=== PATIENT | female | born 1965 | race Caucasian/White ===

== ENCOUNTER → 2020-01-11 13:15 | Outpatient (CLI) | payer OTHER, SELFPAY ==
--- NOTE | ~2020-01-11 | DEXA_ITS ---
Bone Density Report Name: Gian Guardado Age: 54 Sex: Female Ethnicity: White Date of : 1965 Indication: postmenopausal; screening for osteoporosis; cancer; Referring Provider: ARNALDO WILSON Study: Bone densitometry was performed. Exam Date: January 11, 2020 Accession number: [id number] Bone Density: Region BMD T-score Z-score Classification AP Spine (L1, L2, L4) 0.983 -0.5 0.5 Normal Femoral Neck (Left) 1.095 2.2 3.2 Normal Total Hip (Left) 1.092 1.2 1.8 Normal Femoral Neck (Right) 1.112 2.4 3.3 Normal Total Hip (Right) 1.041 0.8 1.4 Normal Total Hip Mean 1.067 1.0 1.6 Normal World Health Organization criteria for BMD impression classify patients as: Normal (T-score at or above -1.0), Osteopenia (T-score between -1.0 and -2.5), or Osteoporosis (T-score at or below -2.5). 10-year Fracture Risk: FRAX not reported because: All T-scores for Spine Total, Hip Total, Femoral Neck at or above -1.0 Previous Exams: Region Exam Age BMD T-score BMD Change BMD Change Date g/cm2 vs Baseline vs Previous AP Spine(L1, L2, L4) 01/11/2020 54 0.983 -0.5 -0.119* -0.119* 01/08/2018 52 1.101 0.6 Total Hip(Left) 01/11/2020 54 1.092 1.2 -0.048* -0.048* 01/08/2018 52 1.139 1.6 Total Hip(Right) 01/11/2020 54 1.041 0.8 -0.042* -0.042* 01/08/2018 52 1.083 1.2 *Denotes significance at 95% confidence level, LSC for AP Spine = 0.022 g/cm2, LSC for Total Hip = 0.027 g/cm2 Clinical Information Provided by Patient: Has used the following medications: Vitamin D, Anastrazol Has the following medical conditions: Cancer Patient maximum height was 67 Menopause Age: 52 Drinks caffeinated beverages Onset of menses at age 14 Number of children 2 Impression: The patient has normal bone mass. The BMD for the AP Spine(L1, L2, L4) decreased, changing by -0.119 since the last DXA exam. The BMD for the Total Hip(Left) decreased, changing by -0.048 since the last DXA exam. The BMD for the Total Hip(Right) decreased, changing by -0.042 since the last DXA exam. Discussion: BONE DENSITY IS ABOVE THE MINIMUM DESIRABLE LEVEL AT ALL SKELETAL SITES TESTED. This patient?s bone mineral density is above the minimum desirable level (T-score -1.0 or better) at all sites measured. The patient should follow a healthful lifestyle (good nutrition with adequate calcium and vitamin D, and appropriate weight-bearing exercise).
== END ==
PROVIDERS: PCP Family Medicine
DX: C50.812 Malignant neoplasm of overlapping sites of left female breast (principal); Z17.0 Estrogen receptor positive status [ER+]; Z85.3 Personal history of malignant neoplasm of breast; Z78.0 Asymptomatic menopausal state
CPT/HCPCS: 77080

== ENCOUNTER → 2022-03-29 11:05 | Outpatient (CLI) | payer OTHER, SELFPAY ==
--- NOTE | ~2022-03-29 | DEXA_ITS ---
Bone Density Report Name: MIMI DE LA TORRE Age: 56 Sex: Female Ethnicity: White Date of : 1965 Indication: postmenopausal; screening for osteoporosis; cancer; Referring Provider: Gay Camilo Study: Bone densitometry was performed. Exam Date: March 29, 2022 Accession number: [id number] Bone Density: Region BMD T-score Z-score Classification AP Spine (L1, L2, L4) 1.033 0.0 1.1 Normal Femoral Neck (Left) 1.166 2.9 3.9 Normal Total Hip (Left) 1.118 1.4 2.2 Normal Femoral Neck (Right) 1.088 2.2 3.2 Normal Total Hip (Right) 0.994 0.4 1.1 Normal Total Hip Mean 1.056 0.9 1.7 Normal World Health Organization criteria for BMD impression classify patients as: Normal (T-score at or above -1.0), Osteopenia (T-score between -1.0 and -2.5), or Osteoporosis (T-score at or below -2.5). 10-year Fracture Risk: FRAX not reported because: All T-scores for Spine Total, Hip Total, Femoral Neck at or above -1.0 Previous Exams: Region Exam Age BMD T-score BMD Change BMD Change Date g/cm2 vs Baseline vs Previous AP Spine(L1, L2, L4) 03/29/2022 56 1.033 0.0 -0.068* 0.050* 01/11/2020 54 0.983 -0.5 -0.119* -0.119* 01/08/2018 52 1.101 0.6 Total Hip(Left) 03/29/2022 56 1.118 1.4 -0.021 0.027 01/11/2020 54 1.092 1.2 -0.048* -0.048* 01/08/2018 52 1.139 1.6 Total Hip(Right) 03/29/2022 56 0.994 0.4 -0.089* -0.047* 01/11/2020 54 1.041 0.8 -0.042* -0.042* 01/08/2018 52 1.083 1.2 *Denotes significance at 95% confidence level, LSC for AP Spine = 0.022 g/cm2, LSC for Total Hip = 0.027 g/cm2 Clinical Information Provided by Patient: Has used the following medications: Vitamin D, Anastrozole, MTV Has the following medical conditions: Cancer, Left breast ca partial mastectomy in 2018 with radiation Patient maximum height was 67.0 Menopause Age: 52 No regular weight bearing exercise Drinks caffeinated beverages Onset of menses at age 14 Number of children 2 Impression: The patient has normal bone mass. The BMD for the Total Hip(Right) decreased, changing by -0.047 since the last DXA exam. Discussion: BONE DENSITY IS ABOVE THE MINIMUM DESIRABLE LEVEL AT ALL SKELETAL SITES TESTED. This patient?s bone mineral density is above the minimum desirable level (T-score -1.0 or better) at all sites measured. The patient should fol
== END ==
PROVIDERS: PCP Family Medicine
DX: Z78.0 Asymptomatic menopausal state (principal); Z79.811 Long term (current) use of aromatase inhibitors
CPT/HCPCS: 77080

== ENCOUNTER 2023-07-22 07:10 | Outpatient (CLI) | payer OTHER, SELFPAY ==
--- NOTE | ~2023-07-22 | XR_ITS ---
Lumbosacral Spine: AP and lateral views Clinical History: Pain Findings: The normal lordotic curve is maintained. No fracture identified. Questionable L5 pars inter articularis defects. Probable grade 1 anterolisthesis of L5 over S1. The intervertebral disc spaces a re preserved. There is moderate to advanced facet arthropathy at the lower lumbar spine. The sacroili ac joints are normally outlined. Impression: Probable grade 1 anterolisthesis of L5 over S1. L5 pars interarticularis defects may be present. Moderate to advanced facet arthropathy at the lower lumbar spine. Reviewed, dictated and finalized at [facility]. Impression: Probable grade 1 anterolisthesis of L5 over S1. L5 pars interarticularis defect s may be present. Moderate to advanced facet arthropathy at the lower lumbar spine.
--- NOTE | ~2023-07-22 | XR_ITS ---
AP view of the pelvis and AP and lateral views of the bilateral hips Clinical history: Pain Findings: No acute fracture or dislocation is seen. Osseous alignment is anatomic. There is mild dege nerative change of both hip joints. Soft tissues are unremarkable. Impression: Mild degenerative change of both hip joints. Reviewed, dictated and finalized at location . Impression: Mild degenerative change of both hip joints.
== END 2023-07-22 07:11 ==
LOC: MICIMG 07:12
PROVIDERS: PCP Physician Assistant; Visit Provider Physician Assistant
DX: M16.0 Bilateral primary osteoarthritis of hip (principal); M47.816 Spondylosis without myelopathy or radiculopathy, lumbar region
CPT/HCPCS: 72100; 73521

== ENCOUNTER 2024-07-09 07:19 | Outpatient (CLI) | payer OTHER, SELFPAY ==
--- NOTE | ~2024-07-09 | XR_ITS ---
XR knee LT 3V 07/09/2024 07:52 Indication: Ankylosing spondylitis Procedure: 3 views left knee Comparison: No prior studies for comparison. Findings: Mild tricompartment osteoarthritis of the left knee. No fracture, subluxation or dislocatio n. No significant joint effusion. No foreign bodies. Impression: 1: Mild tricompartment osteoarthritis of the left knee. Reviewed, dictated and finalized at location A. Impression: 1: Mild tricompartment osteoarthritis of the left knee.
--- NOTE | ~2024-07-09 | XR_ITS ---
XR knee RT 3V 07/09/2024 07:52 Indication: Right knee pain Procedure: 3 views right knee Comparison: No prior studies for comparison. Findings: There is mild tricompartment osteoarthritis. No fracture or traumatic malalignment. No sign ificant joint effusion. No foreign bodies. Impression: 1: Mild tricompartment osteoarthritis of the right knee. Reviewed, dictated and finalized at location A. Impression: 1: Mild tricompartment osteoarthritis of the right knee.
--- NOTE | ~2024-07-09 | XR_ITS ---
XR hip BI 2V w AP pelvis 07/09/2024 07:52 Indication: Ankylosing spondylitis Procedure: AP pelvis 2 views each hip Comparison: 07/22/2023 Findings: There has been progression of severe bilateral osteoarthritis of the hips. Pelvic rings are intact. Mild osteitis pubis. No acute fracture or traumatic malalignment. Impression: 1: Interval progression of severe bilateral osteoarthritis of the hips. Reviewed, dictated and finalized at location A. Impression: 1: Interval progression of severe bilateral osteoarthritis of the hips.
== END 2024-07-09 07:20 | disposition home or self-care (01) ==
PROVIDERS: PCP Physician Assistant; Visit Provider Nurse Practitioner
DX: M45.7 Ankylosing spondylitis of lumbosacral region (principal); Z79.1 Long term (current) use of non-steroidal anti-inflammatories (NSAID); R25.2 Cramp and spasm; G47.01 Insomnia due to medical condition; M17.0 Bilateral primary osteoarthritis of knee; M16.0 Bilateral primary osteoarthritis of hip
CPT/HCPCS: 73521; 73562

== ENCOUNTER 2024-08-25 11:44 | Outpatient (CLI) | payer OTHER, SELFPAY ==
--- NOTE | ~2024-08-25 | DEXA_ITS ---
Bone Density Report Name: MIMI DE LA TORRE Age: 59 Sex: Female Ethnicity: White Date of : 1965 Indication: postmenopausal; screening for osteoporosis; height loss; cancer; Referring Provider: JANNA AUSTIN Study: Bone densitometry was performed. Exam Date: August 25, 2024 Accession number: [id number] Bone Density: Region BMD T-score Z-score Classification AP Spine(L1-L4) 1.079 0.3 1.6 Normal Femoral Neck (Left) 1.156 2.8 4.0 Normal Total Hip (Left) 1.072 1.1 1.9 Normal Femoral Neck (Right) 1.176 3.0 4.1 Normal Total Hip (Right) 1.021 0.6 1.5 Normal Total Hip Mean 1.047 0.9 1.7 Normal World Health Organization criteria for BMD impression classify patients as: Normal (T-score at or above -1.0), Osteopenia (T-score between -1.0 and -2.5), or Osteoporosis (T-score at or below -2.5). 10-year Fracture Risk: FRAX not reported because: All T-scores for Spine Total, Hip Total, Femoral Neck at or above -1.0 Previous Exams: -- Region Exam Age BMD T-score BMD Change BMD Change Date g/cm2 vs Baseline vs Previous -- AP Spine (L1-L4) 08/25/2024 59 1.079 0.3 -4.6%* -4.6%* 01/08/2018 52 1.130 0.8 Total Hip(Left) 08/25/2024 59 1.072 1.1 -5.9%* -4.1%* 03/29/2022 56 1.118 1.4 -1.8% 2.4% 01/11/2020 54 1.092 1.2 -4.2%* -4.2%* 01/08/2018 52 1.139 1.6 Total Hip(Right) 08/25/2024 59 1.021 0.6 -5.7%* 2.8%* 03/29/2022 56 0.994 0.4 -8.3%* -4.5%* 01/11/2020 54 1.041 0.8 -3.9%* -3.9%* 01/08/2018 52 1.083 1.2 -- *Denotes significance at 95% confidence level, LSC for AP Spine = 0.022 g/cm2, LSC for Total Hip = 0.027 g/cm2 Clinical Information Provided by Patient: Has used the following medications: Vitamin D Has the following medical conditions: Cancer, Ankylosing Spondylitis, Breast CA 2015 Patient maximum height was 67 Menopause Age: 52 Drinks caffeinated beverages Onset of menses at age 15 Number of children 2 Impression: The patient has normal bone mass. The BMD for the AP Spine (L1-L4) decreased, changing by -4.6% since the last DXA exam. The BMD for the Total Hip(Left) decreased, changing by -4.1% since the last DXA exam. Discussion: BONE DENSITY IS ABOVE THE MINIMUM DESIRABLE LEVEL AT ALL SKELETAL SITES TESTED. This patient’s bone mineral density is above the minimum desirable level (T-score -1.0 or better) at all sites measured. The patient should follow a healthful lifestyle (good nutrition with adequate calcium and vitamin D, and appropriate weight-bearing exercise). Follow-Up: Consider repeating this study in 3 to 4 years to reassess this patient's status, or sooner if there is some new clinical indication. Reported by: CARSON on 09/01/2024 8:52:00 AM. Reviewed, dictated and finalized at location A.
== END 2024-08-25 11:45 | disposition home or self-care (01) ==
PROVIDERS: PCP Family Medicine; Visit Provider Obstetrics & Gynecology Gynecology
DX: Z78.0 Asymptomatic menopausal state (principal)
CPT/HCPCS: 77080

== ENCOUNTER 2024-09-29 08:35 | Outpatient (CLI) | payer OTHER, SELFPAY ==
--- NOTE | ~2024-09-29 | MM_ITS ---
EXAMINATION: MM screening wali BI w yesenia HISTORY: Screening TECHNIQUE: Craniocaudal and mediolateral oblique 3-D tomosynthesis images were obtained and synthetic 2-D images were generated. CAD analysis was submitted and interpreted. COMPARISON: Comparison to multiple prior studies sequentially, with oldest reviewed study dated 11/26. BREAST PARENCHYMAL COMPOSITION: Dense: The breasts are heterogeneously dense, which may obscure small masses FINDINGS: There is no evidence of suspicious mass, calcification, or architectural distortion to sugg est malignancy in either breast. There has been no suspicious interval change. IMPRESSION: 1. No mammographic evidence of malignancy. 2. Recommend routine screening mammography in one year. BI-RADS Category 1: Negative Reviewed, dictated and finalized at location A.
--- OUTSIDE RECORDS SUMMARY | 2024-09-29 08:56 | XMS_ITS | Clinical Summary ---
Author Organization [facility] Address [address] [place] [address] Care Team Providers Care Drum Filler Name Role Phone Angy Palomino MD Primary Care Provider + Source Comments [facility],non-owned Affiliates and Associated Physician Practices is amultiple site organization consisting of ambulatory clinics and hospital sitesin [place], [place] and [place]. This disclosure is being madepursuant to the Care Everywhere program and may not contain all information available regarding this patient. Last updated 18.[facility] Allergies No known active allergies Medications * Be aware that medications may not be up to date on this document. Alwaysverify current medications with the patient. citalopram (CELEXA) 20 MG tablet 20 mg once daily 07/20/2017 Active lisinopril-hydr oCHLOROthiazide (PRINZIDE; ZESTORETIC) 10-12.5 MG tablet Take 1 tablet by mouth once daily 07/20/2017 Active vitamin D, ergocalciferol, (DRISDOL) 58143 UNITS capsule Take 50,000 Units by mouth every 7 days 07/20/2017 Active metFORMIN (GLUCOPHAGE) 1000 MG tablet Take 1,000 mg by mouth 2 times daily with morning and evening meal Active nystatin (MYCOSTATIN) 787920 UNIT/GM ointmentIndicat ions:Lichen sclerosus,Vulva r itching Apply to affected area 2 times daily 30 g 2 10/13/2018 Active anastrozole (ARIMIDEX) 1 MG tablet Take 1 mg by mouth once daily Active triamcinolone acetonide (KENALOG) 0.1 % ointmentIndicat ions:Lichen sclerosus Apply to affected area Two times a week 30 g 3 09/12/2020 Active Active Problems Problem Noted Date Diagnosed Date Vaginal discharge 08/24/2018 Lichen sclerosus 08/06/2017 Family History Medical History Relation Name Comments Cancer - Breast Cousin Cancer - Lung Father Cancer - Breast Maternal Aunt great CVA Maternal Grandfather Cancer - Ovarian Maternal Grandmother Cancer - Breast Mother DCIS Hypertension Mother ADD/ADHD Paternal Grandfather Cancer - Breast Paternal Grandmother Relation Name Status Comments Cousin Alive Father Maternal Aunt great Maternal Grandfather Maternal Grandmother Mother Alive Paternal Grandfather Paternal Grandmother Social History Tobacco Use Types Packs/Day Years Used Date Smoking Tobacco: Never Smokeless Tobacco: Never Alcohol Use Standard Drinks/Week Comments No 0 (1 standard drink = 0.6 oz pur e alcohol) Comments No Sex and Gender Information Value Date Recorded Sex Assigned at Not on file 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 Gender Identity Not on file Sexual Orientation Not on file Last Filed Vital Signs Vital Sign Reading Time Taken Comments Blood Pressure 132/74 09/12/2020 2:49 PM CDT Pulse - - Temperature - - Respiratory Rate - - Oxygen Saturation - - Inhaled Oxygen Concentration - - Weight 104.3 kg (230 lb) 09/12/2020 2:49 PM CDT Height 170.2 cm (5' 7) 09/12/2020 2:49 PM CDT Body Mass Index 36.02 09/12/2020 2:49 PM CDT Plan of Treatment Health Maintenance Due Date Last Done Comments COLOGUARD (AGES 45-75) - COL ON CA SCREENING 1965 COLON MONITORING 1966 COLONOSCOPY - COLON CA SCREENING 1966 CT COLONOGRAPHY - COLON CA SCREENING 1965 Colorectal Cancer Screening 1966 FIT - COLON CA SCREENING 1966 FLEX SIG - COLON CA SCREENING 1966 LIPID TESTING 1966 HIV SCREENING 1981 HEPATITIS C SCREENING 06/20/1984 DTAP/TDAP/TD VACCINES (1 - Tdap) 1985 HEPATITIS B VACCINE (1 of 3 - 19+ 3-dose series) 1985 PNEUMOCOCCAL VACCINE 50+ (1 of 1 - PCV) 2016 ZOSTER VACCINE (1 of 2) 2016 SCREENING FOR DIABETES 09/12/2020 MAMMOGRAM 09/30/2020 09/30/2018, 09/30/2018 COVID-19 VACCINE (1 - 2023-2 5 season) 2023 DEPRESSION SCREENING 04/14/2024 INFLUENZA VACCINE (Season Ended) 2024 HIB VACCINE Aged Out No longer eligi ble based on patient's age to complete this topic HPV VACCINE Aged Out No longer eligi ble based on patient's age to complete this topic MENINGOCOCCAL (Group B) VACCINE SHARED DECISION-MAKING Aged Out No longer eligible based on patient's age to complete this topic MENINGOCOCCAL GROUPS A/C/Y/W VACCINE Aged Out No longer eligible b ased on patient's age to complete this topic [place] [address] [place] [address] Care Teams Drum Filler Relationship Specialty Start Date End Date Angy Palomino MD [address] [place] [phone] PCP - General 07/24/17
--- OUTSIDE RECORDS SUMMARY | 2024-09-29 08:56 | XMS_ITS | Referral Summary ---
Author Organization [facility] Address [address] [place] [id number] Care Team Providers Care Flying I Instructor Name Role Phone Angy Palomino MD Primary Care Provider Kaleb Parnell MD Unavailable Allergies No known active allergies Medications aspirin 81 mg tablet daily. Active lisinopril-hydr oCHLOROthiazide (PRINZIDE,ZESTO RETIC) 10-12.5 mg per tabletIndicatio ns:hypertension 8 Active VITAMIN D2 50,000 unit capsule 8 Active metFORMIN (GLUCOPHAGE) 1,000 mg tablet every 12 hours. Active cyanocobalamin (Vitamin B-12) 500 mcg tabletIndicatio ns:Prevention of Vitamin B12 Deficiency daily. Active triamcinolone (KENALOG) 0.1 % ointment Apply topically as needed 8 Active clonazePAM (KlonoPIN) 0.5 mg tablet as needed Active grsjs-6-vjl-epa -dpa-fish oil 1,050-1,200 mg capsule 1 tablet daily Activ e nystatin ointment Apply topically as needed 9 Active citalopram (CeleXA) 20 mg tablet Take 1 tablet (20 mg total) by mouth nightly 11 9 Active rosuvastatin (CRESTOR) 5 mg tablet TAKE 1 TABLET BY MOUTH ONCE DAILY IN THE EVENING WITH EVENING MEAL 2 Active cyclobenzaprine (FLEXERIL) 10 mg tablet [address] (VOLTAREN) 75 mg EC tablet Take 1 tablet (75 mg total) by mouth 2 (two) times a day 4 Active folic acid (FOLVITE) 1 mg tablet 4 Active gabapentin (NEURONTIN) 300 mg capsule 4 Active methotrexate 2.5 mg tablet TAKE 5 TABLETS BY MOUTH IN THE MORNING AND 5 TABLETS IN THE EVENING ONCE A WEEK. [address] (PROTONIX) 40 mg EC tablet 4 Active predniSONE (DELTASONE) 5 mg tablet 4 Active traMADoL (ULTRAM) 50 mg tablet 4 Active Active Problems Problem Noted Date Diagnosed Date History of breast cancer 10/22/2017 Carcinoma of overlapping sit es of left breast in female, estrogen receptor positive 05/26/2017 Immunizations Immunization Administration Dates Next Due Flucelvax Influenza Quad 02/19/2016 Influenza, Quadrivalent, Spl it, Preservative Free, Intramuscular 02/07/2020 Pfizer SARS-CoV-2 Monovalent Vaccination (12+ Yrs) PURPLE 08/01/2020,07/10/2020 Social History Tobacco Use Types Packs/Day Years Used Date Smoking Tobacco: Never Smokeless Tobacco: Never Alcohol Use Standard Drinks/Week Comments No 0 (1 standard drink = 0.6 oz pur e alcohol) Comments No Sex and Gender Information Value Date Recorded Sex Assigned at Not on file Legal Sex Female 12:12 PM CDT Gender Identity Not on file Sexual Orientation Not on file Last Filed Vital Signs Vital Sign Reading Time Taken Comments Blood Pressure 125/85 12/26/2023 8:13 AM CDT Pulse 81 12/26/2023 8:13 AM CDT Temperature 36.7 C (98 F) 12/26/2023 8:13 AM CDT Respiratory Rate 18 12/26/2023 8:13 AM CDT Oxygen Saturation 97% 12/26/2023 8:13 AM CDT Inhaled Oxygen Concentration - - Weight 111.9 kg (246 lb 9.6 oz) 12/26/2023 8:09 AM CDT Height 172.7 cm (5' 8) 11/19/2017 12:2 4 PM CDT Body Mass Index 37.5 11/19/2017 12:24 PM CDT Plan of Treatment Not on file Procedures Procedure Name Priority Date/Time Associated Diagnosis Comments SCREENING MAMMOGRAM BILATERAL W TAY Schedule Routine, Read Routine (OP Routine) 09/29/2023 7:21 AM CDT Carcinoma of overlapping sites of left breast in female, estrogen receptor positive (HCC) from Last 3 Months or Most Recently Relevant to Health Maintenance Results * Screening Mammogram Bilateral W Tay (09/29/2023 7:21 AM CDT) Anatomical Region Laterality Modality Breast Bilateral Mammography 09/29/2023 10:3 3 AM CDT Impressions 09/29/2023 10:33 AM CDT No evidence of malignancy in either breast. FINAL ASSESSMENT: BI-RADS Category 1: Negative. RECOMMENDATION: Recommend return for annual screening mammogram in 12 months. Electronically signed by: Kalyan Brandon II, D.O. Narrative 09/29/2023 10:33 AM CDT EXAMINATION: BILATERAL SCREENING MAMMOGRAM COMPARISON: Multiple priors most recent dated 09/27/2022 and most distant dated 05/01/2017. TECHNIQUE: Full-field 2D and digital breast tomosynthesis (DBT) images were obtained. CAD was utilized. BREAST PARENCHYMAL COMPOSITION: The breasts are heterogenously dense, which may obscure small masses. FINDINGS: There is no suspicious mass, calcification, or distortion in either breast. Gay Camilo NP IMG MAMMO PROCEDURES Final Result from Last 3 Months or Most Recently Relevant to Health Maintenance Insurance [facility] [employer] Member Subscriber Plan / Payer ( fective 2007-Present) Name:Gian De La Torre Relation to Subscriber:Self Name:GIAN DE LA TORRE Payer ID:[id number] (NAIC) Type:[employer] HMO/PPO Address: [place] [phone] Care Teams Flying I Instructor Relationship Specialty Start Date End Date Angy Palomino MD [address] [place] [address] PCP - General 01/29/17 Kaleb Parnell MD [address] [place] [address] Consulting Physician Medical Oncology 02/27/20
--- OUTSIDE RECORDS SUMMARY | 2024-09-29 08:56 | XMS_ITS | Encounter Summary ---
Author Organization [facility] Address [address] [place] [address] Phone Care Team Providers Care Geriatric Nurse Assistant Name Role Phone Angy Palomino MD Primary Care Provider Kaleb Parnell MD Unavailable Encounter Details Date Type Department Care Team (Late st Contact Info) Description 08/26/2017 Orders Only [facility] ProviderSherley MD [address] [place] [id number] Social History Tobacco Use Types Packs/Day Years Used Date Smoking Tobacco: Never Comments Unknown Sex and Gender Information Value Date Recorded Sex Assigned at Not on file Legal Sex Female 12:12 PM CDT Gender Identity Not on file Sexual Orientation Not on file documented as of this encounter Plan of Treatment Not on file documented as of this encounter Procedures Procedure Name Priority Date/Time Associated Diagnosis Comments DISCHARGE LABORATORY CUMULATIVE REPORT 08/26/2017 12:00 AM CDT documented in this encounter Results * DISCHARGE LABORATORY CUMULATIVE REPORT (08/26/2017 12:00 AM CDT) Narrative 08/26/2017 12:00 AM CDT Ordered by an unspecified provider. Historical Provider LAB BLOOD ORDERABLES Nathaly l Result documented in this encounter Visit Diagnoses Not on filedocumented in this encounter Care Teams Geriatric Nurse Assistant Relationship Specialty Start Date End Date Angy Palomino MD [address] [place] [address] PCP - General 01/29/17 Kaleb Parnell MD [address] [facility] [address] [place] [address] Consulting Physician Medical Oncology 02/27/20 documented as of this encounter
--- OUTSIDE RECORDS SUMMARY | 2024-09-29 08:56 | XMS_ITS | Clinical Summary ---
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 Gender Identity Not on file Sexual Orientation Not on file Plan of Treatment Health Maintenance Due Date Last Done Comments Hepatitis C Virus (HCV) Screening 1966 TdaP Immunization 1966 Hepatitis B Immunization (1 of 3 - 19+ 3-dose series) 1985 Pap Smear 06/26/1987 Cervical Cancer Screening (CCS) 1996 HPV/Cotest 1996 Colonoscopy 06/26/2011 Colorectal Cancer Screening 06/26/2011 Cologuard 2016 Immunochemical Fecal Occult Blood 2016 Mammogram 2016 Pneumococcal Immunization (5 0+ years) (1 of 1 - PCV) 2016 Zoster Immunization (1 of 2) 2016 Influenza Immunization (#1) 12/14/202301/13, 02/19/2016 SARS-COV-2 Immunization ( season) 2023 Respiratory Syncytial Virus (RSV) Immunization (Adult) (1 - 1-dose 75+ series) 2041 Meningococcal Immunization (ACWY) Aged Out No longer eligible b ased on patient's age to complete this topic Pneumococcal Immunization Combined Aged Out No longer eligible b ased on patient's age to complete this topic Rotavirus Immunization Aged Out No lo nger eligible based on patient's age to complete this topic
--- OUTSIDE RECORDS SUMMARY | 2024-09-29 08:56 | XMS_ITS | Encounter Summary ---
Author Organization [facility] Address [address] [place] [address] Phone Care Team Providers Care Electrotype Servicer Name Role Phone Angy Palomino MD Primary Care Provider Kaleb Parnell MD Unavailable Encounter Details Date Type Department Care Team (Latest Contact Info) Description 03/29/2022 Orders Only [facility] Scanning, Provider Social History Tobacco Use Types Packs/Day Years [...] Procedure Name Priority Date/Time Associated Diagnosis Comments SCAN - RADIOLOGY/IMAGING 03/29/2022 documented in this encounter Results * SCAN - RADIOLOGY/IMAGING (03/29/2022) Anatomical Region Laterality Modality Other us Provider Scanning Edited Result - Final documented in this encounter Visit Diagnoses Not on filedocumented in this encounter Care Teams Electrotype Servicer Relationship Specialty Start Date End Date Angy Palomino MD [address] [facility] [address] [place] [address] PCP - General 01/29/17 Kaleb Parnell MD [address] [facility] [address] [place] [address] Consulting Physician Medical Oncology 02/27/20 documented as of this encounter
--- OUTSIDE RECORDS SUMMARY | 2024-09-29 08:56 | XMS_ITS | Encounter Summary ---
Author Organization [facility] Healthcare Address [address] [place] [address] Care Team Providers Care Campus Recruiting Internship Name Role Phone Angy Palomino MD Primary Care Provider Kaleb Parnell MD Unavailable Reason for Visit * Reason Onset Date Comments Scheduling Appointments 12/17/2019 no answe r for dexa reminder Encounter Details Date Type Department Care Team (Late st Contact Info) Description 12/17/2019 Telephone [facility] [address] [place] [address] Padmini Gilliam RT Scheduling Appointments (no answer for dexa reminder ) Social History Tobacco Use Types Packs/Day Years [...] on file documented as of this encounter Visit Diagnoses Not on filedocumented in this encounter Care Teams Campus Recruiting Internship Relationship Specialty Start Date End Date Angy Palomino MD [address] [facility] [address] [place] [address] PCP - General 01/29/17 Kaleb Parnell MD [address] [facility] [address] [place] [address] Consulting Physician Medical Oncology 02/27/20 documented as of this encounter
--- OUTSIDE RECORDS SUMMARY | 2024-09-29 08:56 | XMS_ITS | Clinical Summary ---
Author Organization [facility] Address [address] [place] [phone] Care Team Providers Care Moth Proofer Name Role Phone Angy Palomino MD Primary [...] (KlonoPIN) 0.5 mg tablet as needed Active kyjcf-9-wym-epa -dpa-fish oil 1,050-1,200 mg capsule 1 tablet [...] SARS-CoV-2 Monovalent Vaccination (12+ Yrs) PURPLE 08/01/2020,07/10/2020 Surgical History Surgery Date Site/Laterality Comments BREAST BIOPSY 03/30/2017 Left malignant Medical History Medical History Date Comments Personal history of malignan t neoplasm of breast History of malignant neoplas m of left breast - (Added by TW Conv) History of radiation therapy Breast cancer (HCC) 03/30/2017 Ankylosing spondylitis (HCC) 10/2023 Family History Medical History Relation Name Comments BRCA 2 Maternal cousin BRCA 2 Mother Breast cancer Mother Adenocarcinoma of breast - (Added by TW Conv) BRCA 2 Mother's Sister BRCA 2 Paternal Grandmother Relation Name Status Comments Maternal cousin Mother Mother's Sister Paternal Grandmother Social History Tobacco Use Types [...] on file Sexual Orientation Not on file Obstetrics History Para Term AB IAB SAB Ectopic Multiple Livin g Live Births 4 2 2 Date Outcome GA Total Labor Labor/2nd/3rd Weight Sex Type Anes PTL Felisha A1 A5 Name Clin Term Term Last Filed Vital Signs Vital Sign Reading [...] 11/19/2017 12:24 PM CDT Plan of Treatment Health Maintenance Due Date Last Done Comments Cervical Cancer Screening 1966 Colon Cancer Screening-Colonoscopy 1966 Depression Screening 1966 Hepatitis C Screening 1966 DTaP/Tdap/Td Vaccine (1 - Tdap) 1977 Hepatitis B Screening 1984 Regular Well Visit/Exam 18-64 1984 Pneumococcal vaccine <65 (1 of 2 - PCV) 1985 Zoster Vaccine (1 of 2) 1985 Covid-19 Vaccine (3 - Pfizer risk series) 08/29/2020 08/01/2020, 07/10/2020 Breast Cancer Screening-Mammogram 09/28/2024 09/29/2023, 09/27/2022, 09/25/2021, Additional history exists Influenza Vaccine (Season Ended) 2024 02/07/20 20, 02/19/2016 Procedures Procedure Name Priority Date/Time Associated Diagnosis [...] Most Recently Relevant to Health Maintenance Insurance AC Immune [employer] AC Immune [employer] Care Teams Moth Proofer Relationship Specialty Start Date End Date Angy Palomino MD [address] [facility] [address] [place] [address] PCP - General 01/29/17 Kaleb Parnell MD [address] [facility] [address] [place] [address] Consulting Physician Medical Oncology 02/27/20
--- OUTSIDE RECORDS SUMMARY | 2024-09-29 08:56 | XMS_ITS | Encounter Summary ---
Author Organization [facility] Address [address] [place] [address] Phone Care Team Providers Care Glass Polisher Name Role Phone Angy Palomino MD Primary Care Provider Kaleb Parnell MD Unavailable Encounter Details Date Type Department Care Team (Latest Contact Info) Description 01/11/2020 Orders Only [facility] Scanning, Provider [...] Date/Time Associated Diagnosis Comments SCAN - RADIOLOGY/IMAGING 01/11/2020 documented in this encounter Results * SCAN - RADIOLOGY/IMAGING (01/11/2020) Anatomical Region Laterality Modality Other us Provider Scanning Final Result documented in this encounter Visit Diagnoses Not on filedocumented in this encounter Care Teams Glass Polisher Relationship Specialty Start Date End Date Angy Palomino MD [address] [facility] 120 [place] [address] PCP - General 01/29/17 Kaleb Parnell MD [address] [facility] 120 [place] [id number] Consulting Physician Medical Oncology 02/27/20 documented as of this encounter
== END 2024-09-29 08:36 | disposition home or self-care (01) ==
LOC: CHSIMG 08:36
PROVIDERS: PCP Family Medicine; Visit Provider Nurse Practitioner Women's Health
DX: Z12.31 Encounter for screening mammogram for malignant neoplasm of breast (principal)
CPT/HCPCS: 77063; 77067

== ENCOUNTER 2024-11-25 12:45 | Outpatient (CLI) | payer OTHER, SELFPAY ==
--- NOTE | 2024-11-25 12:53 | ECG_ITS ---
Test Date: 2024-11-25 13:06:16 Measurements Intervals [place] Rate: 83 P: 24 ND: 143 QRS: -12 QRSD: 89 T: 12 QT: 399 QTc: 469 Interpretive Statements SINUS RHYTHM POSSIBLE LEFT ATRIAL ENLARGEMENT DELAYED PRECORDIAL R/S TRANSITION LOW QRS VOLTAGE IN PRECORDIAL LEADS MINIMAL Q WAVES- HIGH LATERAL LEADS BORDERLINE T WAVE ABNORMALITY- INFERIOR LEADS BORDERLINE ECG No previous ECG available for comparison Electronically Signed On 11-25-2024 13:22:48 CDT by Andrew Garrison D.O.
--- OUTSIDE RECORDS SUMMARY | 2024-11-25 12:59 | XMS_ITS | Encounter Summary ---
Author Organization [facility] Address [address] [place] [address] Phone Care Team Providers Care Adapted Physical Education Teacher Name Role Phone Angy Palomino MD Primary Care Provider Kaleb Parnell MD Unavailable Keshav Braga MD Primary Care Provider Encounter Details Date Type Department Care Team [...] on filedocumented in this encounter Care Teams Adapted Physical Education Teacher Relationship Specialty Start Date End Date Angy Palomino MD [address] [facility] [address] [place] [address] PCP - General 01/29/17 11/21/24 Keshav Braga MD [address] [facility] [address] [place] [address] PCP - General Family Medicine 11/22/24 Kaleb Parnell MD [address] [facility] [address] [place] [address] Consulting Physician Medical Oncology 02/27/20 documented as of this encounter
--- OUTSIDE RECORDS SUMMARY | 2024-11-25 12:59 | XMS_ITS | Clinical Summary ---
Author Organization [facility] Address [address] [place] [phone] Care Team Providers Care Grocery Caddy Name Role Phone Kaleb Parnell MD Unavailable Keshav Barga MD Primary Care Provider Allergies No known active allergies Medications aspirin [...] (KlonoPIN) 0.5 mg tablet as needed Active uvywv-1-huq-epa -dpa-fish oil 1,050-1,200 mg capsule 1 tablet [...] breast in female, estrogen receptor positive 05/26/2017 Encounters Date Type Department Care Team Description 11/25/2024 6:53 AM CDT [place] [address] Unilateral primary osteoarthritis, right hip; Osteonecrosis, unspecified 11/22/2024 8:10 [place] [address] Fatigue (Primary Dx); Essential hypertension, malignant; Mixed hyperlipidemia from Last 3 Months Immunizations Immunization Administration Dates Next Due Flucelvax [...] therapy Breast cancer (HCC) 03/30/2017 Ankylosing spondylitis 10/2023 Family History Medical History Relation Name [...] 09/27/2022, 09/25/2021, Additional history exists Influenza Vaccine (#1) 2024 02/07/2020, 2015 Procedures Procedure Name Priority Date/Time Associated Diagnosis Comments CT HIP RIGHT WO CONTRAST Schedule Routine, Read Routine (OP Routine) 11/25/2024 7:17 AM CDT Unilateral primary osteoarthritis, right hip Osteonecrosis, unspecified EGFR Routine 11/22/2024 8:23 AM CDT Fatigue Essential hypertension, malignant Mixed hyperlipidemia DIFFERENTIAL AUTO Routine 11/22/2024 8:2 3 AM CDT Fatigue Essential hypertension, malignant Mixed hyperlipidemia BASIC METABOLIC PANEL Routine 11/22/2024 8:23 AM CDT Fatigue Essential hypertension, malignant Mixed hyperlipidemia CBC WITH AUTO DIFFERENTIAL Routine 11/22/2024 8:23 AM CDT Fatigue Essential hypertension, malignant Mixed hyperlipidemia SCREENING MAMMOGRAM BILATERAL W TAY Schedule Routine, Read Routine (OP Routine) 09/29/2023 7:21 AM CDT Carcinoma of overlapping sites of left breast in female, estrogen receptor positive (HCC) from Last 3 Months or Most Recently Relevant to Health Maintenance Results * CT Hip Right WO Contrast (11/25/2024 7:17 AM CDT) Anatomical Region Laterality Modality Lower Extremities Right Computed Tomog michelle 11/25/2024 10:3 2 AM CDT Narrative 11/25/2024 10:39 AM CDT EXAM DESCRIPTION: CT HIP RIGHT WO CONTRAST REASON FOR STUDY: M16.11, M87.9 Unilateral primary osteoarthritis, right hip, Osteonecrosis, unspecified, 04/2023 TECHNIQUE: CT scan of the right hip was performed without intravenous contrast. Reconstructed coronal and sagittal MPR images reviewed. Automated exposure control was used as a dose optimization technique for this examination. COMPARISON: None FINDINGS: Pelvic Bones: Incompletely visualized. No visible fracture. Hip Joint: There is advanced right hip osteoarthritis with remodeling and flattening of the humeral head as well as remodeling and widening of the acetabulum. Reciprocal subchondral sclerosis and cystic change. Mild fragmentation of the superior humeral head. Pelvic Soft Tissues: Unremarkable. Other: No other finding. IMPRESSION: 1. Advanced right hip osteoarthritis. THIS IS AN ELECTRONICALLY VERIFIED FINAL REPORT 11/25/2024 10:39 AM - Electronically signed by Hai GAMBLE T: Report ID: [id number] Reading Location: [id number] Procedure Note Hai Dukes MD - 11/25/2024 EXAM DESCRIPTION: CT HIP RIGHT WO CONTRAST REASON FOR STUDY: M16.11, M87.9 Unilateral primary osteoarthritis, right hip, Osteonecrosis, unspecified, 04/2023 TECHNIQUE: CT scan of the right hip was performed without intravenous contrast. Reconstructed coronal and sagittal MPR images reviewed.Automated exposure control was used as a dose optimization technique for this examination. COMPARISON: None FINDINGS: Pelvic Bones: Incompletely visualized. No visible fracture. Hip Joint: There is advanced right hip osteoarthritis with remodelingand flattening of the humeral head as well as remodeling and widening of the acetabulum. Reciprocal subchondral sclerosis and cystic change. Mild fragmentation of the superior humeral head. Pelvic Soft Tissues: Unremarkable. Other: No other finding. IMPRESSION: 1. Advanced right hip osteoarthritis. THIS IS AN ELECTRONICALLY VERIFIED FINAL REPORT 11/25/2024 10:39 AM - Electronically signed by Hai GAMBLE T: Report ID: [id number] Reading Location: [place] [address] Jasper Zuluaga MD IMG CT PROCEDURES Final Resu lt * eGFR (11/22/2024 8:23 AM CDT) eGFR 80 >=60 mL/min/1. 73 m2 Comment: Interpretive Data Reference Interval Normal >/= 90 mL/min/1.73m2 Mildly decreased* 60 - 89 mL/min/1.73m2 Mildly to moderately decreased 45 - 59 mL/min/1.73m2 Moderately to severely decreased 30 - 44 mL/min/1.73m2 Severely decreased 15 - 29 mL/min/1.73m2 Kidney Failure < 15 mL/min/1.73m2 *Relative to young adult level Estimated glomerular filtration rate is determined by the 2020 CKD-EPI equation recommended by the National Kidney Foundation (A Unifying Approach to GFR Estimation: Recommendations of the NKF-ASK Task Force on Reassessing the Inclusion of Race in Diagnosing Kidney Disease, JASN 2020). The CKD-EPI equation should not be used for patients with unstable renal function and has not been validated in children and those over 70. Current interpretive data was last reviewed 2021. Blood 11/22/2024 8:23 AM CDT 11/22/2024 11:01 AM CDT Jasper Zuluaga MD LAB BLOOD ORDERABLES Final R esult [facility] [address] [facility] [place] [address] * Differential, auto (11/22/2024 8:23 AM CDT) Neutrophil abs 2.73 1.50 - 6.50 K/cumm Imm gran abs 0.01 0.00 - 0.10 K/cumm [facility] Lymphocyte abs 1.73 0.80 - 3.30 K/cumm [facility] Monocyte abs 0.63 0.20 - 0.80 K/cumm [facility] Eosinophil abs 0.14 0.00 - 0.50 K/cumm [facility] Basophil abs 0.07 0.00 - 0.10 K/cumm [facility] Neutrophil pct 51.4 % [facility] Comment: Interpretive Data Percent cell count reference ranges are not reported, since discordance with absolute values may lead to misinterpretation of CBC data. Current Interpretive Data was last revised on 2017. Imm gran pct 0.2 % [facility] Comment: Interpretive Data Percent cell count reference ranges are not reported, since discordance with absolute values may lead to misinterpretation of CBC data. Current Interpretive Data was last revised on 2017. Lymphocyte pct 32.6 % [facility] Comment: Interpretive Data Percent cell count reference ranges are not reported, since discordance with absolute values may lead to misinterpretation of CBC data. Current Interpretive Data was last revised on 2017. Monocyte pct 11.9 % [facility] Comment: Interpretive Data Percent cell count reference ranges are not reported, since discordance with absolute values may lead to misinterpretation of CBC data. Current Interpretive Data was last revised on 2017. Eosinophil pct 2.6 % [facility] Comment: Interpretive Data Percent cell count reference ranges are not reported, since discordance with absolute values may lead to misinterpretation of CBC data. Current Interpretive Data was last revised on 2017. Basophil pct 1.3 % [facility] Comment: Interpretive Data Percent cell count reference ranges are not reported, since discordance with absolute values may lead to misinterpretation of CBC data. Current Interpretive Data was last revised on 2017. Blood 11/22/2024 8:23 AM CDT 11/22/2024 11:04 AM CDT Jasper Zuluaga MD LAB BLOOD ORDERABLES Final R esult Performing Organization Address [facility] Co de Phone Number [facility] [address] [facility] [place] [address] * (ABNORMAL) CBC with auto differential (11/22/2024 8:23 AM CDT) WBC 5.31 3.80 - 9.90 K/cumm Hgb 12.7 11.9 - 15.5 g/dL [facility] Hct 39.6 35.6 - 45.5 % [facility] Plt 309 150 - 400 K/cumm [facility] MPV 9.1 9.1 - 12.3 fL [facility] RBC 4.46 3.90 - 5.20 M/cumm [facility] MCV 88.8 81.3 - 96.4 fL [facility] MCH 28.5 27.1 - 33.3 pg [facility] MCHC 32.1(L) 32.3 - 35.7 g/dL [facility] RDW CV 13.6 11.1 - 14.9 % [facility] RDW SD 44.1 35.7 - 48.1 fL [facility] NRBC abs 0.00 0.00 - 0.01 K/cumm [facility] Blood 11/22/2024 8:23 AM CDT 11/22/2024 11:04 AM CDT Jasper Zuluaga MD LAB BLOOD ORDERABLES Final R esult [facility] [address] [facility] [place] [address] * Basic metabolic panel (11/22/2024 8:23 AM CDT) Sodium 141 135 - 145 mmol/L Potassium, pl 3.8 3.3 - 4.9 mmol/L [facility] Chloride 103 97 - 110 mmol/L [facility] CO2 27 22 - 32 mmol/L [facility] Anion gap 11 2 - 15 mmol/L [facility] BUN 12 6 - 25 mg/dL [facility] Creatinine 0.84 0.60 - 1.10 mg/dL [facility] Glucose 83 70 - 199 mg/dL [facility] Comment: Interpretive Data Fasting glucose >/= 126 mg/dl is diagnostic for diabetes. Fasting is defined as no caloric intake for at least 8 hours. Fasting glucose between 100 mg/dl to 125 mg/dl is diagnostic of prediabetes. In a patient with classic symptoms of hyperglycemia or hyperglycemic crisis, a random glucose >/= 200 mg/dl is diagnostic for diabetes. In the absence of unequivocal hyperglycemia, results should be confirmed by repeat testing. The classification and Diagnosis of Diabetes Diabetes Care 2021; 46: S19-S40. Current interpretive data was last revised 2022. Calcium 9.5 8.5 - 10.3 mg/dL [facility] Blood 11/22/2024 8:23 AM CDT 11/22/2024 11:01 AM CDT Jasper Zuluaga MD LAB BLOOD ORDERABLES Final R esult Performing Organization Address [facility] Co de Phone Number [facility] [address] [facility] [place] [address] * Screening Mammogram Bilateral W Tay (09/29/2023 [...] Most Recently Relevant to Health Maintenance Insurance [employer] [facility] [employer] Address[address] [address] [employer] [facility] HMO/PPO Address: [address] [place] [address] [facility] [employer] Care Teams Grocery Caddy Relationship Specialty Start Date End Date Keshav Braga MD [address] [facility] [address] [place] [address] PCP - General Family Medicine 11/22/24 Kaleb aPrnell MD Consulting Physician Medical Oncology 02/27/20
--- OUTSIDE RECORDS SUMMARY | 2024-11-25 12:59 | XMS_ITS | Encounter Summary ---
Author Organization [facility] Healthcare Address [address] [place] [address] Care Team Providers Care Log Chain Feeder Name Role Phone Kaleb Parnell MD Unavailable Keshav Braga MD Primary Care Provider Reason for Referral * MRI/CAT/PET Scan (Routine) - Closed Specialty Diagnoses / Procedures Referred By Contac t Referred To Contact Radiology Diagnoses Unilateral primary osteoarthritis, right hip Osteonecrosis, unspecified Procedures CT Hip Right WO Contrast Jasper Zuluaga MD [address] [address] Phone: tel: fax: [address] [phone] Referral ID Status Reason Start Date Expiration Date Visits Re quested Visits Authorized [id number] Closed 11/17/2024 12/17/2025 1 1 Reason for Visit * MRI/CAT/PET Scan (Routine) - Closed Specialty Diagnoses / Procedures Referred By Contac t Referred To Contact Radiology Diagnoses Unilateral primary osteoarthritis, right hip Osteonecrosis, unspecified Procedures CT Hip Right WO Contrast Jasper Zuluaga MD [address] [address] Phone: tel: fax: [address] [phone] Referral ID Status Reason Start Date Expiration Date Visits Re quested Visits Authorized [id number] Closed 11/17/2024 12/17/2025 1 1 Encounter Details Date Type Department Care Team (Latest Contact Info) Description 11/25/2024 6:53 AM CDT Hospital Encounter [address] [address] Unilateral primary osteoarthritis, right hip; Osteonecrosis, unspecified Social History Tobacco Use Types Packs/Day Years [...] Unilateral primary osteoarthritis, right hip Osteonecrosis, unspecified documented in this encounter Results * CT Hip Right WO Contrast [...] signed by Hai GAMBLE T: Report ID: [id number] Reading Location: [id number] Procedure Note Hai Dukes MD - 11/25/2024 [...] signed by Hai GAMBLE T: Report ID: [id number] Reading Location: [id number] Jasper Zuluaga MD IMG CT PROCEDURES Final Resu lt documented in this encounter Visit Diagnoses Diagnosis Unilateral primary osteoarthritis, right hip Osteonecrosis, unspecified documented in this encounter Care Teams Log Chain Feeder Relationship Specialty Start Date End Date Keshav Braga MD [address] [facility] [address] [place] [address] PCP - General Family Medicine 11/22/24 Kaleb Parnell MD Consulting Physician Medical Oncology 02/27/20 documented as of this encounter
--- OUTSIDE RECORDS SUMMARY | 2024-11-25 12:59 | XMS_ITS | Clinical Summary ---
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 Gender Identity Not on file Sexual Orientation Not on file Plan of Treatment Health Maintenance Due Date Last Done Comments Hepatitis C Virus (HCV) Screening 1966 TdaP Immunization 1966 Hepatitis B Immunization (1 of 3 - 19+ 3-dose series) 1985 Pap Smear 06/26/1987 Cervical Cancer Screening (CCS) 1996 HPV/Cotest 1996 Cologuard 06/26/2011 Colonoscopy 06/26/2011 Colorectal Cancer Screening 06/26/2011 Immunochemical Fecal Occult Blood 06/26/2011 Pneumococcal Immunization (5 0+ years) (1 of 1 - PCV) 2016 Zoster Immunization (1 of 2) 2016 SARS-COV-2 Immunization ( - season) 2023 Influenza Immunization (#1) 12/13/202401/13, 02/19/2016 Respiratory Syncytial Virus (RSV) Immunization (Adult) (1 - 1-dose 75+ series) 2041 Human Papillomavirus (HPV) Immunization Aged Out No longer eligible b ased on patient's age to complete this topic Meningococcal Immunization (ACWY) Aged Out No longer eligible b ased on patient's age to complete this topic Rotavirus Immunization Aged Out No lo nger eligible based on patient's age to complete this topic
--- OUTSIDE RECORDS SUMMARY | 2024-11-25 12:59 | XMS_ITS | Encounter Summary ---
Author Organization [facility] Healthcare Address [address] [place] [address] Care Team Providers Care Pick Remover Name Role Phone Angy Palomino MD Primary Care Provider Kaleb Parnell MD Unavailable Keshav Braga MD Primary Care Provider Reason for Visit * Reason Onset Date Comments Scheduling Appointments 12/17/2019 no answe r for dexa reminder Encounter Details Date Type Department Care Team (Late st Contact Info) Description 12/17/2019 Telephone [facility] [address] [place] [address] Padmini Gilliam RT Scheduling Appointments (no answer [...] on filedocumented in this encounter Care Teams Pick Remover Relationship Specialty Start Date End Date Angy Palomino MD [address] [facility] [address] [place] [address] PCP - General 01/29/17 11/21/24 Keshav Braga MD [address] [facility] [address] [place] [address] PCP - General Family Medicine 11/22/24 Kaleb Parnell MD [address] [facility] [address] [place] [address] Consulting Physician Medical Oncology 02/27/20 documented as of this encounter
--- OUTSIDE RECORDS SUMMARY | 2024-11-25 12:59 | XMS_ITS | Clinical Summary ---
Author Organization [facility] Address [address] [place] [address] Care Team Providers Care Wearing Apparel Shaker Name Role Phone Angy Palomino MD Primary Care Provider + Source Comments [facility],non-owned Affiliates and Associated Physician Practices is amultiple site organization consisting of ambulatory clinics and hospital sitesin [place], [place] and [place]. This disclosure is being madepursuant to the Care Everywhere program and may not contain all information available regarding this patient. Last updated 18.[facility] Allergies No known active allergies Medications * Be aware that medications may not be up to date on this document. Alwaysverify current medications with the patient. 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
--- OUTSIDE RECORDS SUMMARY | 2024-11-25 12:59 | XMS_ITS | Encounter Summary ---
Author Organization [facility] Address [address] [place] [address] Phone Care Team Providers Care Medical Billing Clerk Name Role Phone Angy Palomino MD Primary Care Provider Kaleb Parnell MD Unavailable Keshav Braga MD Primary Care Provider Encounter Details Date Type Department Care Team (Late st Contact Info) Description 08/26/2017 Orders Only [facility] ProviderSherley MD [address] [place] [id number] Social History Tobacco Use Types Packs/Day [...] on filedocumented in this encounter Care Teams Medical Billing Clerk Relationship Specialty Start Date End Date Angy Palomino MD [address] [place] [address] PCP - General 01/29/17 11/21/24 Keshav Braga MD [address] [place] [address] PCP - General Family Medicine 11/22/24 Kaleb Parnell MD [address] [place] [address] Consulting Physician Medical Oncology 02/27/20 documented as of this encounter
--- OUTSIDE RECORDS SUMMARY | 2024-11-25 12:59 | XMS_ITS | Encounter Summary ---
Author Organization [facility] Address [address] [place] [address] Phone Care Team Providers Care Outsole Skiver Name Role Phone Angy Palomino MD Primary [...] on filedocumented in this encounter Care Teams Outsole Skiver Relationship Specialty Start Date End Date Angy Palomino MD [address] [facility] [address] [place] [address] PCP - General 01/29/17 11/21/24 Kehsav Braga MD [address] [place] [address] PCP - General Family Medicine 11/22/24 Kaleb Parnell MD [address] [place] [address] Consulting Physician Medical Oncology 02/27/20 documented as of this encounter
== END 2024-11-25 12:46 | disposition home or self-care (01) ==
LOC: ANHCARD 12:49
PROVIDERS: PCP Family Medicine; Visit Provider Orthopaedic Surgery
DX: R94.31 Abnormal electrocardiogram [ECG] [EKG] (principal); I10 Essential (primary) hypertension
CPT/HCPCS: 93005

== ENCOUNTER 2024-12-23 07:53 | Outpatient (CLI) | payer OTHER, SELFPAY ==
--- OUTSIDE RECORDS SUMMARY | 2024-12-23 08:21 | XMS_ITS | Encounter Summary ---
Author Organization [facility] Address [address] [place] [address] Phone Care Team Providers Care Safety Teacher Name Role Phone Angy Palomino MD Primary Care Provider Kaleb Parnell MD Unavailable Keshav Braga MD Primary Care Provider Encounter Details Date Type Department Care Team (Late st Contact Info) Description 08/26/2017 Orders Only [facility] ProviderSherley MD [address] [place] [id number] Social History Tobacco Use Types Packs/Day [...] on filedocumented in this encounter Care Teams Safety Teacher Relationship Specialty Start Date End Date Angy Palomino MD [address] [place] [address] PCP - General 01/29/17 11/21/24 Keshav Braga MD [address] [place] [address] PCP - General Family Medicine 11/22/24 Kaleb Parnell MD [address] [place] [address] Consulting Physician Medical Oncology 02/27/20 documented as of this encounter
--- OUTSIDE RECORDS SUMMARY | 2024-12-23 08:21 | XMS_ITS | Encounter Summary ---
Author Organization [facility] Address [address] [place] [address] Phone Care Team Providers Care Production Hand Name Role Phone Angy Palomino MD Primary [...] on filedocumented in this encounter Care Teams Production Hand Relationship Specialty Start Date End Date Angy Palomino MD [address] [facility] [address] [place] [address] PCP - General 01/29/17 11/21/24 Keshav Braga MD [address] [place] [address] PCP - General Family Medicine 11/22/24 Kaleb Parnell MD [address] [place] [address] Consulting Physician Medical Oncology 02/27/20 documented as of this encounter
--- OUTSIDE RECORDS SUMMARY | 2024-12-23 08:21 | XMS_ITS | Encounter Summary ---
Author Organization [facility] Address [address] [place] [address] Care Team Providers Care Fruit Vendor Name Role Phone Angy Palomino MD Primary Care Provider Kaleb Parnell MD Unavailable Keshav Braga MD Primary Care Provider Reason for Visit * Reason Onset Date Comments Scheduling Appointments 12/17/2019 no answe r for dexa reminder Encounter Details Date Type Department Care Team (Late st Contact Info) Description 12/17/2019 Telephone [facility] [address] [place] [address] Padmini Gilliam RT Scheduling Appointments (no answer [...] on filedocumented in this encounter Care Teams Fruit Vendor Relationship Specialty Start Date End Date Angy Palomino MD [address] [email or web address] [address] [place], [place] [id number] PCP - General 01/29/17 11/21/24 Keshav Braga MD [address] [place] [address] PCP - General Family Medicine 11/22/24 Kaleb Parnell MD [address] [place] [address] Consulting Physician Medical Oncology 02/27/20 documented as of this encounter
--- OUTSIDE RECORDS SUMMARY | 2024-12-23 08:21 | XMS_ITS | Clinical Summary ---
Author Organization [facility] Address [address] [place] [address] Care Team Providers Care Secondary Education Professor Name Role Phone Unavailable Primary Care Provider Unavailabl e Social History Tobacco Use Types Packs/Day Years Used Date Smoking Tobacco: Never Assessed Comments Unknown Sex and Gender Information Value Date Recorded Sex Assigned at Not on file Legal Sex Female 11:34 AM STATOR CONNECTOR Gender Identity Not on file Sexual Orientation [...]
--- OUTSIDE RECORDS SUMMARY | 2024-12-23 08:21 | XMS_ITS | Clinical Summary ---
Author Organization [facility] Address [address] [place] [address] Care Team Providers Care Associate Field Service Engineer Name Role Phone Kaleb Parnell MD Unavailable Keshav Braga MD Primary Care Provider Allergies No known [...] (KlonoPIN) 0.5 mg tablet as needed Active pyqwd-9-pcb-epa -dpa-fish oil 1,050-1,200 mg capsule 1 tablet [...] Encounters Date Type Department Care Team Description 12/03/2024 8:05 [place] [address] Primary osteoarthritis of right hip (Primary Dx); Routine general medical examination at a health care facility 11/25/2024 6:53 AM CDT - 11/25/2024 11:59 PM [place] [address] Unilateral primary osteoarthritis, right hip; Osteonecrosis, unspecified Discharge Disposition: Discharge to home or self care 11/22/2024 8:10 [place] [address] Fatigue (Primary Dx); Essential hypertension, malignant; Mixed [...] Depression Screening 1966 Hepatitis C Screening 1966 Hepatitis B Screening 1984 Regular Well Visit/Exam 18-64 1984 Pneumococcal vaccine <65 (1 of 2 - PCV) 1985 Covid-19 Vaccine (3 - Pfizer risk series) 08/29/2020 08/01/2020, 07/10/2020 Zoster Vaccine (1 of 2) 12/09/2022 10/14/2022, 06/20 Breast Cancer Screening-Mammogram 09/28/2024 09/29/2023, 09/27/2022, 09/25/2021, Additional history exists Influenza Vaccine (#1) 2024 4, 02/13/2023, 02/07/2020, Additional history exists DTaP/Tdap/Td Vaccine (2 - Td or Tdap) 07/19/2032 07/19/2022 Procedures Procedure Name Priority Date/Time Associated Diagnosis Comments URINALYSIS AND REFLEX TO MICROSCOPIC AND CULTURE Routine 12/03/2024 8:19 AM CDT Primary osteoarthritis of right hip Routine general medical examination at a health care facility CT HIP RIGHT WO CONTRAST Schedule Routine, [...] Recently Relevant to Health Maintenance Results * Urinalysis reflex to microscopic and culture Urine, clean voided (12/03/2024 8:19 AM CDT) Color, ur Yellow Yellow Clarity, ur Clear Clear [facility] Specific gravity, ur 1.016 1.003 - 1.030 [facility] pH, urine 6.5 [facility] Comment: Interpretive Data U rine pH is affected by diet, medications, systemic acid-base disturbances, and renal tubular function. pH may affect urinary stone formation. For example, urine pH below 6.0 may help reduce the tendency for calcium phosphate stones and pH greater than 6.0 may reduce the tendency for uric acid stone formation. Source: [facility] Current Interpretive Data was last revised on 2017 Protein, ur ql Negative Negative [facility] Glucose, ur ql Negative Negative [facility] Ketones, ur Negative Negative [facility] Bilirubin, ur Negative Negative [facility] Blood, ur Negative Negative [facility] Urobilinogen, ur <2.0 <2.0 mg/dL [facility] Nitrite, ur Negative Negative [facility] Leukocyte esterase, ur Negative Negative [facility] UA reflex comment Reflex conditions for microscopic UA and culture not met. [facility] Urine, clean voided 12/03/2024 8:19 AM CDT 12/03/2024 10:39 AM CDT Jasper Zuluaga MD LAB MICROBIOLOGY - GENERAL O RDERABLES Final Result Performing Organization Address City/State/[facility] Co de Phone Number [facility] [address] [facility] Department [place] [address] * CT Hip Right WO Contrast (11/25/2024 [...] signed by Hai GAMBLE T: Report ID: [id number] Reading Location: [id number] Procedure Note Hai Dukes MD - 11/25/2024 [...] signed by Hai GAMBLE T: Report ID: [id number] Reading Location: [id number] Jasper Zuluaga MD IMG CT PROCEDURES Final [...] of Race in Diagnosing Kidney Disease, JASN 202). The CKD-EPI equation should not be used for patients with unstable renal function and has not been validated in children and those over 70. Current interpretive data was last reviewed 2021. Blood 11/22/2024 8:23 AM CDT 11/22/2024 11:01 AM CDT Jasper Zuluaga MD LAB BLOOD ORDERABLES Final R esult [facility] [address] [facility] [place] [address] * Differential, auto (11/22/2024 8:23 AM CDT) Pathologist [facility] Neutrophil abs 2.73 1.50 - 6.50 K/cumm Imm gran abs 0.01 0.00 - 0.10 K/cumm [facility] Lymphocyte abs 1.73 0.80 - 3.30 K/cumm [facility] Monocyte abs 0.63 0.20 - 0.80 K/cumm [facility] Eosinophil abs 0.14 0.00 - 0.50 K/cumm [facility] Basophil abs 0.07 0.00 - 0.10 K/cumm [facility] Neutrophil pct 51.4 % [facility] Comment: Interpretive Data Percent cell count reference ranges are not reported, since discordance with absolute values may lead to misinterpretation of CBC data. Current Interpretive Data was last revised on 2017. Imm gran pct 0.2 % [facility] Comment: Interpretive Data Percent cell count reference ranges are not reported, since discordance with absolute values may lead to misinterpretation of CBC data. Current Interpretive Data was last revised on 2017. Lymphocyte pct 32.6 % [facility] Comment: Interpretive Data Percent cell count reference ranges are not reported, since discordance with absolute values may lead to misinterpretation of CBC data. Current Interpretive Data was last revised on 2017. Monocyte pct 11.9 % [facility] Comment: Interpretive Data Percent cell count reference ranges are not reported, since discordance with absolute values may lead to misinterpretation of CBC data. Current Interpretive Data was last revised on 2017. Eosinophil pct 2.6 % [facility] Comment: Interpretive Data Percent cell count reference ranges are not reported, since discordance with absolute values may lead to misinterpretation of CBC data. Current Interpretive Data was last revised on 2017. Basophil pct 1.3 % [facility] Comment: Interpretive Data Percent cell count reference ranges are not reported, since discordance with absolute values may lead to misinterpretation of CBC data. Current Interpretive Data was last revised on 2017. Blood 11/22/2024 8:23 AM CDT 11/22/2024 11:04 AM CDT Jasper Zuluaga MD LAB BLOOD ORDERABLES Final R esult [place] [id number] [facility] Department of Laboratories [place], [place] [id number] * (ABNORMAL) CBC with auto differential (11/22/2024 8:23 AM CDT) WBC 5.31 3.80 - 9.90 K/cumm Hgb 12.7 11.9 - 15.5 g/dL [facility] Hct 39.6 35.6 - 45.5 % [facility] Plt 309 150 - 400 K/cumm [facility] MPV 9.1 9.1 - 12.3 fL [facility] RBC 4.46 3.90 - 5.20 M/cumm [facility] MCV 88.8 81.3 - 96.4 fL [facility] MCH 28.5 27.1 - 33.3 pg [facility] MCHC 32.1(L) 32.3 - 35.7 g/dL [facility] RDW CV 13.6 11.1 - 14.9 % [facility] RDW SD 44.1 35.7 - 48.1 fL [facility] NRBC abs 0.00 0.00 - 0.01 K/cumm [facility] Blood 11/22/2024 8:23 AM CDT 11/22/2024 11:04 AM CDT Jasper Zuluaga MD LAB BLOOD ORDERABLES Final R esult Performing Organization Address City/[facility]/ZIP Co de Phone Number [facility] [place] [address] * Basic metabolic panel (11/22/2024 8:23 AM CDT) Sodium 141 135 - 145 mmol/L Potassium, pl 3.8 3.3 - 4.9 mmol/L [facility] Chloride 103 97 - 110 mmol/L [facility] CO2 27 22 - 32 mmol/L [facility] Anion gap 11 2 - 15 mmol/L [facility] BUN 12 6 - 25 mg/dL [facility] Creatinine 0.84 0.60 - 1.10 mg/dL [facility] Glucose 83 70 - 199 mg/dL [facility] Comment: Interpretive Data Fasting glucose >/= 126 [...] classification and Diagnosis of Diabetes Diabetes Care 202; 46: S19-S40. Current interpretive data was last revised 2022. Calcium 9.5 8.5 - 10.3 mg/dL [facility] Blood 11/22/2024 8:23 AM CDT 11/22/2024 11:01 AM CDT Jasper Zuluaga MD LAB BLOOD ORDERABLES Final R esult [facility] [address] [place] [address] [place] [address] * Screening Mammogram Bilateral W Tay (09/29/2023 [...] Most Recently Relevant to Health Maintenance Insurance Method [employer] [place] [facility] H[facility]/PPO Address: [facility] [address] [place] [address] Method [employer] [facility] H[facility]/PPO Address: [address] [address] [place] [address] [facility] Care Teams Associate Field Service Engineer Relationship Specialty Start Date End Date Keshav Braga MD [address] [facility] [address] [place] [address] PCP - General Family Medicine 11/22/24 Kaleb Parnell MD Consulting Physician Medical Oncology 02/27/20
--- OUTSIDE RECORDS SUMMARY | 2024-12-23 08:21 | XMS_ITS | Encounter Summary ---
Author Organization [facility] Address [address] [place] [address] Phone Care Team Providers Care Compliance Spec Name Role Phone Angy Palomino MD Primary [...] on filedocumented in this encounter Care Teams Compliance Spec Relationship Specialty Start Date End Date Angy Palomino MD [address] [place] [address] PCP - General 01/29/17 11/21/24 Keshav Braga MD [address] [place] [address] PCP - General Family Medicine 11/22/24 Kaleb Parnell MD [address] [place] [address] Consulting Physician Medical Oncology 02/27/20 documented as of this encounter
[2024-12-23 10:02] LABS: Albumin Level 4.1 g/dL (3.5-5.1)
[2024-12-23 10:06] LABS: Hemoglobin A1C 5.3 % (<5.7)
[2024-12-23 10:17] LABS: INR 0.9; Prothrombin Time 12.8 Seconds (11.1-14.7)
[2024-12-23 10:18] LABS: Partial Thromboplastin Time 27.5 Seconds (22.3-36.8)
[2024-12-23 11:30] LABS: MRSA (PCR) NOT DETECTED (NOT DETECTE)
== END 2024-12-23 07:54 | disposition home or self-care (01) ==
LOC: ANHSURGERY 07:59
PROVIDERS: PCP Physician Assistant; Visit Provider Orthopaedic Surgery
DX: Z01.818 Encounter for other preprocedural examination (principal); M16.11 Unilateral primary osteoarthritis, right hip
CPT/HCPCS: 80307; 82040; 83036; 85610; 85730; 86850; 86900; 86901; 87641

== ENCOUNTER 2025-01-06 13:41 | Inpatient (IN) | payer OTHER, SELFPAY ==
[2024-12-23 08:11] VITALS: BMI 36.5
[2024-12-23 08:27] VITALS: BP 120/68; PULSE 82; RESP 16; TEMP 36.6; O2SAT 99
--- NOTE | 2024-12-23 08:46 | PC.NURSE ---
Report to the Outpatient Waiting Room, entrance under the green pavilion located off [facility], at time __6:00AM___ on date __01/05/25___. Planned Procedure Time: ___7:30AM___.? Time changes happen often and if your time is changed the preop area will call you the afternoon before. - You and your visitor will be asked to self-screen and do not enter if you have any COVID symptoms. Please call surgeon if you need to reschedule. - A mask is optional within the hospital at this time. Patients may have clear liquids (water, carbonated beverages, clear teas, apple juice) until 3 hours prior to surgery (4:30AM) with a maximum of 20 ounces. - No food from midnight until time of surgery and no smoking, or chewing tobacco (or any form of nicotine). No chewing gum, candy or mints. Take only the following medications with a SIP of water on the morning of surgery: __GABAPENTIN___ MAY TAKE CLONAZEPAM NEEDED DO NOT STOP ANY OF YOUR OTHER PRESCRIPTION MEDICATIONS PRIOR TO SURGERY EXCEPT THE FOLLOWING Hold all vitamins and supplements for 3 days per anesthesiologist. Medications to discontinue per physician ___HOLD ALL VITAMINS/SUPPLEMENTS 7 DAYS PRE-OP PER DR PALAFOX Date to take last dose Please no make-up, nail turkish, hairspray, perfume, deodorant, or body powder the day of surgery.? No jewelry (including any body piercings) or valuables the day of surgery, leave them at home.? Please take a shower or bath the night before, or the morning of, surgery with an antibacterial soap.? Wear comfortable, loose fitting clothing.? - Jewelry must be removed prior to entering the operating room.? Rings and piercings that are not removed may be cut off. - The hospital will not accept responsibility for valuables.? - Please leave all valuables, including medications, at home the day of surgery. If you are going home after surgery, a licensed delivery driver/supervisor must drive you home.? - NO public transportation without another adult if you receive anesthesia. - We recommend that an adult stay with you for 24 hours following discharge. - We also recommend that you do not drive, make important decision, drink alcoholic beverages, or take any drugs that were not prescribed by your health care provider for at least 24 hours after your discharge time. Follow any additional instructions given to you from your surgeon. Telephone instructions given to ____PATIENT and asked if any additional questions and then verbalized understanding. Patient advised to call surgeon office or pre surgery nurse liaison [phone] if any additional questions.
[2025-01-05] VITALS (14 sets, daily range): BP systolic 99–142; BP diastolic 45–97; PULSE 86–101; RESP 12–20; TEMP 36.2–36.9; O2SAT 93–100; BMI 35.7
[2025-01-05] MEDS: ACETAMINOPHEN 500 MG TABLET 1000 MG PO (07:00)
[2025-01-05] MEDS: TRANEXAMIC ACID 1,000MG/ISO100 1,000 MG/100 ML BAG 200 MG IVPB (07:00)
[2025-01-05] MEDS: LACTATED RINGERS 1,000 ML 30 ML IV CONT ×2 (07:00→11:07)
--- NOTE | 2025-01-05 07:12 | WPDHPUPDATE1 ---
History and Physical Update Update Date/Time: 01/05/25 07:12 History and Physical has been reviewed, including an updated exam of the patient. There are NO changes in the patient's condition. Risks, benefits, and alternatives have been discussed and questions answered. Patient agrees to proceed with procedure.
--- NOTE | 2025-01-05 07:28 | WPDANESEPPF ---
Anes - Initial Pre Proc Eval Procedure: Operation Date: 01/05/25 07:30 Proposed Procedures p Right Total Hip Arthroplasty - Jasper Zuluaga MD Date/Time: 01/05/25 07:28 Surgeon: Jasper Zuluaga MD Pre Op Diagnosis: rt hip djd Patient Data Age: 59 Gender: F Height: 1.68 m Weight: 100.4 kg Last Vital Signs Temp 97.4 F L 01/05/25 07:16 Pulse 95 01/05/25 07:16 Resp 16 12/23/24 08:27 BP 142/97 H 01/05/25 07:16 Pulse Ox 97 01/05/25 07:16 O2 Del Method Room Air 01/05/25 07:16 Allergies Allergy/AdvReac Type Severity Reaction Status Date / Time sulfasalazine Allergy RASH Verified 12/27/24 10:54 Home Medications ?Medication ?Instructions ?Recorded ?Confirmed ?Type clonazepam 0.5 mg tablet 0.5 mg PO DAILY PRN Anxiety 02/08/19 01/05/25 History omega-3 fatty acids-fish oil 360 1 cap PO DAILY 02/09/19 01/05/25 History mg-1,200 mg capsule cholecalciferol (vitamin D3) 1,250 50,000 unit PO 2XW 03/23/19 12/27/24 History mcg (50,000 unit) capsule Held on 07/20/24. Instructions: .Provider Order cyclobenzaprine 10 mg tablet 10 mg PO TID PRN muscle spasm 11/14/23 12/27/24 History gabapentin 300 mg capsule 300 mg PO TID 11/14/23 01/05/25 History lisinopril 20 1 tablet PO DAILY #90 tabs 07/20/24 01/05/25 Rx mg-hydrochlorothiazide 25 mg tablet metformin 1,000 mg tablet See Rx Instructions .Route 08/27/24 01/05/25 Rx .COMPLEX #180 tabs celecoxib 200 mg capsule (Celebrex) 200 mg PO BID PRN pain 30 days #60 12/14/24 12/27/24 Rx caps pantoprazole 40 mg tablet,delayed 40 mg PO QAM PRN REFLUX 12/14/24 01/05/25 History release chlorhexidine gluconate 4 % 1 applic topical ONCE #237 mL 12/22/24 12/27/24 Rx topical liquid (Hibiclens) citalopram 40 mg tablet 40 mg PO HS 12/23/24 01/05/25 History furosemide 20 mg tablet 20 mg PO QAM PRN edema 12/23/24 12/27/24 History triamcinolone acetonide 0.1 % 1 applic topical BID PRN skin 12/23/24 12/27/24 History topical cream irritation oxycodone-acetaminophen 5 mg-325 1 tablet PO Q6H PRN pain #30 tabs 12/28/24 12/28/24 Rx mg tablet oxycodone-acetaminophen 5 mg-325 1 tablet PO Q6H PRN pain #30 tabs 12/28/24 12/28/24 Rx mg tablet rosuvastatin 5 mg tablet See Rx Instructions .Route 12/31/24 01/05/25 Rx .COMPLEX #90 tabs Laboratory Tests 01/05/25 06:57 POC Capillary Glucose 96 mg/dl (65-105) Patient hx anesthesia problems: none Family hx anesthesia problems: none Results Review: All pre-operative results and documents have been reviewed as part of the pre-operative evaluation. [facility] Past Medical History Medical History BMI 34.0-34.9,adult Use of anastrozole (Arimidex) Breast CA Caregiver stress Essential (primary) hypertension MDD (major depressive disorder), recurrent episode, moderate Mixed hyperlipidemia Pre-diabetes Surgical History Surgical History H/O lumpectomy Family History Family History Mother Hypertension Family history of malignant neoplasm of breast in first degree relative Family history of coronary artery disease Patient's mother is Sibling Family history of atrial fibrillation Father Family history of lung cancer Social History Social History Social History: Smoking status: Never smoker Second hand tobacco smoke exposure: No Alcohol intake: never Substance use: never Substance use type: does not use Do You Feel Safe in your Home?: Yes Lack of Transportation: No Lack of Food: Never True Current Housing: I Have Housing Concerned About Future Housing: No Difficulty Paying Gas/Electric Bills: No Difficulty Paying for Meds: No Currently Unemployed: No Education: Don't Know Difficulty w/ Childcare or Family Care: No Living arrangements: with family Additional living arrangements comments: DAUGHTER Occupation/Education: occupation Additional occupation/education comments: [employer] Gender identity (if verbalized by the patient): Female Sexual Orientation (if Verbalized by the Patient): Straight or Heterosexual Spiritual care concerns: No Anes - Eval Final PreProcedure Day of Procedure 01/05/25 07:28 Patient weight: obese Heart: regular rate and rhythm Lungs: clear to auscultation Airway: Mallampati scale class II Neurological: alert and oriented Last oral intake: >/= 8 hours ASA classification: III Emergent: no Anesthetic plan: proceed Anesthesia type and monitoring: general ETT and standard monitoring Results Review: All pre-operative results and documents have been reviewed as part of the pre-operative evaluation. Informed Consent: The patient's anesthetic plan and its attendant risks and benefits were discussed with the patient/family/POA. Questions were solicited and answers provided to the satisfaction of the patient/family/POA.
[2025-01-05] MEDS: SODIUM CHLORIDE 0.9% IV 38.7 ML, MORPHINE SULFATE INJ (*CRX) 2 MG, ROPivacaine HCL 1% 2... INFILTRATE (07:36)
[2025-01-05] MEDS: ceFAZolin 2 GM in SODIUM CHLORIDE 0.9% IV 50 ML 100 ML IVPB ×3 (07:36→23:41)
[2025-01-05] MEDS: TRANEXAMIC ACID 1,000 MG/10 ML AMPUL 1000 MG IV PUSH (10:29)
[2025-01-05] MEDS: fentaNYL CITRATE INJ (*CRX) 100 MCG/2 ML VIAL 25 MCG IV PUSH ×2 (11:28→11:34)
--- NOTE | 2025-01-05 11:49 | W.PM.PROC2 ---
Procedure Note - Detailed Date of Procedure 01/05/25 Pre-op Diagnosis rt hip djd Post-op Diagnosis Same Procedure Performed R JOSELUIS Surgeon Jasper Zuluaga MD Anesthesia General Description of Procedure THE PATIENT WAS TAKEN TO THE OPERATING ROOM IN STABLE CONDITION AND WAS PLACED IN THE LATERAL DECUBITUS AND THE RIGHT LOWER EXTREMITY WAS PREPPED AND DRAPED IN THE STERILE FASHION. INCISION WAS MADE IN THE POSTERIOR LATERAL SIDE OF THE HIP, DOWN TO THE FASCIA LAYER. THE FASCIA WAS INCISED. THE HIP WAS EXPOSED. THE SHORT EXTERNAL ROTATORS WERE EXPOSED. THE SCIATIC NERVE WAS IDENTIFIED. INCISION WAS MADE THROUGH THE SHORT EXTERNAL ROTATORS AND THE CAPSULE OF THE HIP JOINT. THE HIP WAS DISLOCATED. AN OSTEOTOMY WAS MADE TO THE FEMORAL NECK ABOUT 1 CM PROXIMAL TO THE LESSER TROCHANTER. THE ACETABULUM WAS EXPOSED. THERE WAS SEVERE DJD SEEN. BEGINNING WITH A 46 REAMER THE ACETABULUM WAS REAMED TO 57 MM. A 57 MM TRIAL WAS PLACED IN 35 DEG OF ABDUCTION AND ANTEVERSION WAS IN ALIGNMENT WITH THE TRANS ACETABULAR LIGAMENT. THE FIT WAS EXCELLENT. THE TRIAL WAS REMOVED. A 58 MM BIOMET G7 COMPONENT WAS THEN TAPPED IN TO PLACE IN 35 DEG OF ABDUCTION AND ANTEVERSION IN ALIGNMENT WITH THE TRANSVERSE ACETABULAR LIGAMENT. THE FIT WAS EXCELLENT. 2 SCREWS WERE PLACED THAT HAD EXCELLENT BITES. THE DUAL MOBILITY LINER WAS PLACED WITH EXCELLENT FIT AND THE LINER WAS CHECKED FOR STABILITY. NEXT THE FEMUR WAS PREPARED WITH INITIAL CANAL FINDER THEN SEQUENTIAL BROACHING WITH A TAPERLOC HIP SYSTEM, UNTIL A 9 BROACH FIT WELL IN 15 OF ANTEVERSION. A 0 HIGH OFFSET NECK WITH DUAL MOBILITY HEAD TRIAL WAS PLACED. THE SHUCK TEST WAS EXCELLENT AND THE STABILITY IN FLEXION AND ROTATION WAS EXCELLENT. LEG LENGTHS WERE GROSSLY EQUAL. TRIALS WERE REMOVED. A BIOMET TAPERLOC 9 STEM WAS PLACED WITH A HIGH OFFSET NECK. THE FIT WAS EXCELLENT IN 15 DEG OF ANTEVERSION. A 0 CERAMIC DUAL FEMORAL HEAD/LINER WAS PLACED. THE HIP WAS TRIALED AND THE STABILITY WAS EXCELLENT WERE THE LEG LENGTHS AND THE SHUCK TEST. THE WOUND WAS IRRIGATED WITH STERILE BETADINE AND WATER FOR 3 MIN. THEN WASHED AGAIN. THE SCIATIC NERVE WAS IDENTIFIED AGAIN. THE CAPSULE AND THE EXTERNAL ROTATORS WERE APPROXIMATED WITH NUMBER 1 VICRYL. THE FASCIA WITH No 2 QUIL AND THE SUB CUTANEOUS LAYER WITH 2-0 ABSORBABLE SUTURE AND A RUNNING 3-0 SUBCUTICULAR STITCH FOR THE SKIN. DERMABOND WAS PLACED AND STERILE DRESSING WAS APPLIED. PATIENT WAS PLACED BACK ON TO THE SUPINE POSITION AND WAS EXTUBATED Estimated Blood Loss 500 Complications No immediate complications Condition Stable Disposition PACU
--- NOTE | 2025-01-05 13:12 | ADMGEN ---
This patient, Gian Guardado, was admitted to [facility] Surg Room 316-01. Patient/family oriented to hospital policies and general routines including ID bracelet, bed and alarms, visiting hours, pain management, procedures, bathroom and other care routines, personal items, smoking policy, room service/diet, and visiting hours. Information on how to activate the Rapid Response Team has been discussed. Patient/Family are encouraged to report perceived risks to care and to ask questions if they do not understand what they are told or what they should do. Received report from Jarett
[2025-01-05] MEDS: SODIUM CHLORIDE 0.9% IV 1,000 ML 125 ML IV CONT (14:20)
[2025-01-05] MEDS: SENNA/DOCUSATE SODIUM TABLET 2 TAB PO ×2 (14:21→20:19)
[2025-01-05] MEDS: ASPIRIN 325 MG ENTERIC TABLET PO ×2 (14:22→20:19)
[2025-01-05] MEDS: KETOROLAC 15 MG/ML VIAL (*BKC) IV PUSH ×3 (14:23→23:40)
[2025-01-05] MEDS: CYCLOBENZAPRINE HCL 10 MG TABLET PO (17:53)
[2025-01-05] MEDS: ROSUVASTATIN 5 MG TABLET BY MOUTH (17:53)
[2025-01-05] MEDS: GABAPENTIN 300 MG CAPSULE PO (18:34)
[2025-01-05] MEDS: CITALOPRAM HYDROBROMIDE 20 MG TABLET 40 MG PO (20:19)
[2025-01-06] VITALS (13 sets, daily range): BP systolic 84–120; BP diastolic 40–76; PULSE 92–105; RESP 14–18; TEMP 36.2–36.7; O2SAT 98–100
--- NOTE | ~2025-01-06 | XR_ITS ---
Examination: XR hip RT min 2V Clinical History: POST-OP RIGHT JOSELUIS Comparison: 11/11/2024 Technique: 2 views right hip Findings/impression: 1. Expected findings and appearance after right hip arthroplasty. 2. No periprosthetic fracture or other complication noted. Reviewed, dictated and finalized at location R.
[2025-01-06] MEDS: KETOROLAC 15 MG/ML VIAL (*BKC) IV PUSH ×2 (05:15→12:50)
[2025-01-06 07:49] LABS: Hematocrit 24.8 % (37.0-47.0); Hemoglobin 7.9 g/dL (12.0-15.0); Immature Granulocyte Percent A 0.2 % (0-0.5); Lymphocytes Absolute Auto 0.81 K/mm3 (0.9-3.2); Mean Corpuscular HGB Conc 31.9 g/dl (32-36); Mean Corpuscular Hemoglobin 28.0 pg (26-34); Mean Corpuscular Volume 87.9 fl (80-100); Nucleated Red Blood Cells Absolute Auto 0.000 K/mm3 (0.0-0.012); Nucleated Red Blood Cells Perc 0.0 % (0.0-0.2); Platelet Count Result 218 k/mm3 (150-375); Red Blood Count 2.82 M/mm3 (4.2-5.4); White Blood Count 8.2 K/mm3 (4.5-10.0)
[2025-01-06 08:10] LABS: Anion Gap 6 mmol/L (4-12); Blood Urea Nitrogen 17 mg/dL (7-17); Calcium 8.0 mg/dL (8.4-10.2); Carbon Dioxide 27 mmol/L (22-30); Chloride 97 mmol/L (98-107); Estimated CRCL calculation 82 ml/min; Estimated Glomerular Filt Rate > 60; Glucose 115 mg/dL (65-110); Potassium 3.2 mmol/L (3.4-5.0); Sodium 130 mmol/L (137-145)
--- NOTE | 2025-01-06 08:11 | PCPTNOTE ---
Attempted to see patint at this time, however RN advised to hold PT at this time due to patient having low BP. PT will continue to follow.
[2025-01-06] MEDS: SENNA/DOCUSATE SODIUM TABLET 2 TAB PO (08:12)
[2025-01-06] MEDS: GABAPENTIN 300 MG CAPSULE PO ×3 (08:12→17:19)
[2025-01-06] MEDS: ASPIRIN 325 MG ENTERIC TABLET PO ×2 (08:12→20:16)
[2025-01-06] MEDS: ceFAZolin 2 GM in SODIUM CHLORIDE 0.9% IV 50 ML 100 ML IVPB (08:12)
--- NOTE | 2025-01-06 08:15 | PCOTNOTE ---
The patient treatment was not able to be completed due to Low BP. hold per RN. Will plan to continue treatment per plan of care.
[2025-01-06] MEDS: CELECOXIB 200 MG CAPSULE PO (08:16)
--- NOTE | 2025-01-06 09:36 | P.PNOP_ITS ---
Progress Note: A&P Assessment and Plan (1) S/P total hip arthroplasty: Qualifiers: Laterality: right Qualified Code(s): Z96.641 - Presence of right artificial hip joint Code(s): Z96.649 - Presence of unspecified artificial hip joint Status: Acute Assessment and Plan: POD #1 : Right JOSELUIS Hgb 7.9 today postoperative. Hypotension this morning with mild dizziness with moving in the bed. HELD antihypertensives today. Push oral fluid intake. Plan to reevalaute HgB tomorrow. Continue PT/OT. WBAT. Walker. HIGH FALL RISK. Continue pain control. Ice Hip. Protect skin. DVT prophylaxis with Aspirin. SCDs. Incentive Spirometry Use reviewed. Monitor Dressing. Change prior to discharge. Bowel Regimen. Dispo: Home with Home Health, likely tomorrow, pending progress with PT/OT and improvement in BP. Plan Reviewed history, exam, radiographs and current labs with attending MD and covering surgeon, Dr. Zuluaga, who agrees with current plan as indicated above. No further recommendations from Dr. Zuluaga at this time. Subjective Subjective Date/Time Seen: 01/06/ 09:36 Post Op day: 1 Interval history: POD#1: Right JOSEULIS Patient with hypotension this AM. Held off on PT this morning due to some dizziness with movement in the bed. Pain controlled right knee. No concerns aside from BP today. Review of Systems Review of Systems: All systems reviewed & are unremarkable except as noted in HPI and below Constitutional: Constitutional: Denies chills, Denies fever(s), Denies headache(s), Denies lethargy and Reports weakness ENT: Denies headache(s) Cardiovascular: Cardiovascular: Denies chest pain, Denies diaphoresis, Denies lightheadedness, Denies palpitations, Denies dyspnea and Denies dyspnea on exertion Respiratory: Respiratory: Denies cough, Denies dyspnea and Denies dyspnea on exertion Gastrointestinal: Gastrointestinal: Denies constipation, Denies diarrhea, Denies nausea and Denies vomiting Genitourinary: Genitourinary: Reports urinary frequency, Denies dysuria and Denies urinary hesitancy Musculoskeletal: Musculoskeletal: Reports joint swelling (Right Hip ) and Reports limited range of motion (Right Hip due to recent surgery ) Neurologic: Denies headache(s) and Reports weakness Endocrine: Endocrine: Denies palpitations Exam Const: General: comfortable and no acute distress Resp: Effort & Inspection: normal respiratory effort Cardio: Rate: regular rate Rhythm: regular rhythm GI: Inspection: non-distended Skin: General skin exam: normal color Other: Incision right hip c/d/i. Surrounding tissue without redness/warmth. Mild swelling consistent with recent surgery. No drainage. Neuro: Cognition (Neuro): normal cognition Speech: normal speech Extrem: Right lower extremity: normal to inspection, normal capillary refill, hip/thigh Details: tenderness Location: of the hip (Thigh soft ) Location: laterally and anteriorly, swelling Location: at the hip, abnormal ROM (limited consistent with recent surgery ) Details: pain with active ROM during and pain with passive ROM during and other (Incision c/d/i. ); no deformity and no unusual warmth, knee Details: normal to inspection; no tenderness and no swelling, lower leg (Negative Ritesh's Sign ) Details: normal to inspection and no edema; no tenderness, ankle (+ankle dorsiflexion/plantarflexion) Details: normal to inspection and no edema; no tenderness, no swelling and no ecchymosis and foot Details: normal capillary refill, toes with normal ROM, vascular exam Details: dorsalis pedis pulse present and motor-sensory exam Details: light- touch normal; no tenderness Objective Data Vital Signs Vital Signs: Vital Signs - 24 hr 01/05/25 11:07 01/05/25 11:15 01/05/25 11:30 Temperature 36.4 C L Pulse Rate 94 99 92 Respiratory Rate 15 16 12 Blood Pressure 112/69 99/72 L 102/71 Pulse Oximetry 99 99 95 Oxygen Delivery Simple Face Mask Room Air Room Air Oxygen Flow Rate 10 01/05/25 11:45 01/05/25 12:00 01/05/25 12:15 Temperature Pulse Rate 94 94 94 Respiratory Rate 16 16 12 Blood Pressure 123/75 115/74 122/71 Pulse Oximetry 93 93 95 Oxygen Delivery Room Air Room Air Room Air Oxygen Flow Rate 01/05/25 12:30 01/05/25 12:41 01/05/25 13:20 Temperature 36.2 C L 36.3 C L Pulse Rate 94 98 93 Respiratory Rate 17 17 17 Blood Pressure 114/77 108/66 122/72 Pulse Oximetry 98 99 97 Oxygen Delivery Room Air Oxygen Flow Rate 01/05/25 13:43 01/05/25 14:26 01/05/25 14:57 Temperature 36.4 C Pulse Rate 98 101 H Respiratory Rate 18 20 Blood Pressure 121/68 Pulse Oximetry 99 100 Oxygen Delivery Room Air Room Air Oxygen Flow Rate 01/05/25 15:11 01/05/25 18:26 01/05/25 20:00 Temperature 36.6 C Pulse Rate 86 Respiratory Rate 17 Blood Pressure 113/64 Pulse Oximetry 99 Oxygen Delivery Room Air Room Air Oxygen Flow Rate 01/05/25 21:55 01/06/25 02:26 01/06/25 06:14 Temperature 36.9 C 36.7 C 36.7 C Pulse Rate 87 92 92 Respiratory Rate 18 14 18 Blood Pressure 107/45 L 120/76 96/51 L Pulse Oximetry 100 100 98 Oxygen Delivery Oxygen Flow Rate 01/06/25 08:00 01/06/25 08:25 01/06/25 08:59 Temperature Pulse Rate Respiratory Rate Blood Pressure 84/40 L 106/50 L Pulse Oximetry 98 Oxygen Delivery Room Air Oxygen Flow Rate Intake/Output Intake/Output: Intake & Output 01/03/25 01/04/25 01/05/25 01/06/25 23:59 23:59 23:59 23:59 Intake Total 1200 1080 Balance 1200 1080 Meds/Results Medications: Active Medications Generic Name Dose Route Start Last Admin Trade Name Jonatan PRN Reason Stop Dose Admin Acetaminophen 500 mg 01/05/25 12:41 Acetaminophen 500 Mg Tablet PO Q6H PRN Pain Rated 1-3 Aspirin 325 mg 01/05/25 12:55 01/06/25 08:12 Aspirin 325 Mg Enteric Tablet PO 325 mg Q12HR YESSI Administration Celecoxib 200 mg 01/05/25 12:41 01/06/25 08:16 Celecoxib 200 Mg Capsule PO 200 mg BID PRN Administration Pain Citalopram Hydrobromide 40 mg 01/05/25 21:00 01/05/25 20:19 Citalopram Hydrobromide 20 Mg Tablet PO 40 mg HS YESSI Administration Clonazepam 0.5 mg 01/05/25 12:41 Clonazepam (*Crx) 0.5 Mg Tablet PO DAILY PRN Anxiety Cyclobenzaprine HCl 10 mg 01/05/25 12:55 01/05/25 17:53 Cyclobenzaprine Hcl 10 Mg Tablet PO 10 mg TID PRN Administration Muscle Spasm Diazepam 5 mg 01/05/25 12:55 Diazepam (*Crx) 5 Mg Tablet PO Q6H PRN Anxiety/Muscle Spasm Diphenhydramine HCl 25 mg 01/05/25 12:41 Diphenhydramine Hcl Inj 50 Mg/Ml Vial IV PUSH Q6H PRN Itching Fentanyl Citrate 25 mcg 01/04/25 13:46 01/05/25 11:34 Fentanyl Citrate Inj (*Crx) 100 Mcg/2 Ml Vial IV PUSH 25 mcg Q2M PRN Administration Pain Furosemide 20 mg 01/05/25 12:41 Furosemide 20 Mg Tablet PO QAM PRN Edema Gabapentin 300 mg 01/05/25 17:00 01/06/25 08:12 Gabapentin 300 Mg Capsule PO 300 mg TID YESSI Administration Hydrochlorothiazide 25 mg 01/05/25 14:00 01/06/25 08:12 Hydrochlorothiazide 25 Mg Tablet PO Not Given QAM YESSI Hydromorphone HCl 1 mg 01/05/25 12:41 Hydromorphone Hcl Inj (*Crx) 1 Mg/Ml Syr IV PUSH Q2H PRN Breakthrough Pain Rated 7-10 or NPO Hydromorphone HCl 0.5 mg 01/05/25 12:41 Hydromorphone Hcl Inj (*Crx) 1 Mg/Ml Syr IV PUSH Q2H PRN Breakthrough Pain Rated 4-6 or NPO Ibuprofen 800 mg in 200 mls @ 400 mls/hr 01/05/25 12:41 Caldolor 800 Mg/200 Ml IVPB Q6H PRN Breakthrough Pain Rated 1-3 or NPO Ketorolac Tromethamine 15 mg 01/05/25 12:41 01/06/25 05:15 Ketorolac 15 Mg/Ml Vial (*Bkc) IV PUSH 01/06/25 12:01 15 mg Q6HR YESSI Administration Lisinopril 20 mg 01/05/25 14:00 01/06/25 08:12 Lisinopril 20 Mg Tablet PO Not Given QAM YESSI Metformin HCl 1,000 mg 01/05/25 17:00 01/06/25 08:12 Metformin Hcl 500 Mg Tablet BY MOUTH 1,000 mg BIDWM YESSI Administration Naloxone HCl 0.1 mg 01/05/25 12:41 Naloxone Hcl 0.4 Mg/Ml Vial IV PUSH Q2M PRN Opiate Reversal Ondansetron HCl 4 mg 01/04/25 13:46 Ondansetron Inj 4 Mg/2 Ml Vial IV PUSH ONCE PRN Nausea Ondansetron HCl 4 mg 01/05/25 12:41 Ondansetron Inj 4 Mg/2 Ml Vial IV PUSH Q4H PRN Nausea And Vomiting Oxycodone/Acetaminophen 1 tablet 01/05/25 12:41 Oxycodone/Acetaminophen (*Crx) 5-325 Mg Tablet PO Q4H PRN Pain Rated 4-6 Oxycodone/Acetaminophen 1 tab 01/05/25 12:41 Oxycodone/Acetaminophen (*Crx) 10-325 Mg Tablet PO Q6H PRN Pain Rated 7-10 Pantoprazole Sodium 40 mg 01/05/25 12:41 Pantoprazole 40 Mg Tablet PO QAM PRN Reflux Polyethylene Glycol 17 gm 01/05/25 13:15 01/06/25 08:11 Polyethylene Glycol 3350 17 Gm Powd.Pack PO 17 gm QAM YESSI Administration Rosuvastatin Calcium 5 mg 01/05/25 17:00 01/05/25 17:53 Rosuvastatin 5 Mg Tablet BY MOUTH 5 mg DAILY@1700 YESSI Administration Senna/Docusate Sodium 2 tab 01/05/25 13:15 01/06/25 08:12 Senna/Docusate Sodium Tablet PO 2 tab BID YESSI Administration Labs Labs: Laboratory Results - last 24 hr 01/06/25 07:20 WBC 8.2 RBC 2.82 L Hgb 7.9 L Hct 24.8 L MCV 87.9 MCH 28.0 MCHC 31.9 L RDW 12.7 Plt Count 218 MPV 9.1 Immature Gran % (Auto) 0.2 Neut % (Auto) 75.6 H Lymph % (Auto) 9.9 L [place] % (Auto) 13.9 H Eos % (Auto) 0.0 Baso % (Auto) 0.4 Lymph # (Auto) 0.81 L [place] # (Auto) 1.1 H Eos # (Auto) 0.0 Baso # (Auto) 0.0 Abs Immat Gran (auto) 0.02 Absolute Neuts (auto) 6.2 Absolute Nucleated RBC 0.000 Nucleated RBC % 0.0 Sodium 130 L Potassium 3.2 L Chloride 97 L Carbon Dioxide 27 Anion Gap 6 BUN 17 Creatinine 0.78 Estim Creat Clear Calc 82 Estimated GFR > 60 Glucose 115 H Calcium 8.0 L Quality VTE Prophylaxis VTE prophylaxis: mechanical ordered
[2025-01-06] MEDS: IBUPROFEN IV 800 MG/200 ML 800 MG/200 ML BAG 400 MG IVPB (10:00)
--- NOTE | 2025-01-06 11:52 | PC.NURSE ---
0825 Viry Ambrosio NP notified of bp 84/40 and holding am bp meds. Patient asymptomatic while laying in bed.
[2025-01-06 12:14] LABS: Hematocrit 24.5 % (37.0-47.0); Hemoglobin 7.9 g/dL (12.0-15.0); Mean Corpuscular HGB Conc 32.2 g/dl (32-36); Mean Corpuscular Hemoglobin 27.9 pg (26-34); Mean Corpuscular Volume 86.6 fl (80-100); Platelet Count Result 238 k/mm3 (150-375); Red Blood Count 2.83 M/mm3 (4.2-5.4); White Blood Count 8.1 K/mm3 (4.5-10.0)
--- NOTE | 2025-01-06 12:33 | PC.NURSE ---
Viry roy CINDER PITMAN notified of bp 90/50.
[2025-01-06 12:39] LABS: Anion Gap 8 mmol/L (4-12); Blood Urea Nitrogen 19 mg/dL (7-17); Calcium 8.0 mg/dL (8.4-10.2); Carbon Dioxide 25 mmol/L (22-30); Chloride 97 mmol/L (98-107); Estimated CRCL calculation 73 ml/min; Estimated Glomerular Filt Rate > 60; Glucose 111 mg/dL (65-110); Potassium 2.9 mmol/L (3.4-5.0); Sodium 130 mmol/L (137-145)
[2025-01-06] MEDS: SODIUM CHLORIDE 0.9% IV 500 ML IV CONT (12:49)
[2025-01-06 13:26] LABS: Magnesium 1.9 mg/dL (1.6-2.3)
[2025-01-06] MEDS: KCL 40 MEQ/WATER 100 ML 100 ML 25 ML IVPB (13:53)
--- NOTE | 2025-01-06 14:23 | P.CONIM_ITS ---
Assessment and Plan Assessment and plan (1) Status post total hip replacement, right: Code(s): Z96.641 - Presence of right artificial hip joint Status: Acute Assessment and Plan: * POD #1 - Care and management per Orthopedics. (2) Anemia: Code(s): D64.9 - Anemia, unspecified Status: Acute Assessment and Plan: * Likely secondary to #1 above. * Trend daily labs * Recommend transfusion if Hgb is less than or equal to 7. (3) Hyponatremia: Code(s): E87.1 - Hypo-osmolality and hyponatremia Status: Acute Assessment and Plan: * Potentially multifactorial including dehydration vs. SIADH vs. side effect of Diuretics * Asymptomatic w/Sodium level of 130. * Trend labs * Obtain osmolalities and urine sodium to rule out SIADH * Fluid restrict to 1500 ml. (4) Hypokalemia: Code(s): E87.6 - Hypokalemia Status: Acute Assessment and Plan: * Potassium this AM of 2.9. * 40 mEq KCL rider ordered. * Trend labs * Give 40 mEq po as well x1 * Telemetry * Check Magnesium with AM labs (5) Essential (primary) hypertension: Code(s): I10 - Essential (primary) hypertension Status: Chronic Assessment and Plan: * Currently well controlled w/BPs running 80s/low 100s/40s-50s. * Continue to monitor. * Hold HCTZ at this time as BP's are running lower and Potassium is also low. Consider restarting when electrolytes are stable and her Hgb is trending upward. (6) Mixed hyperlipidemia: Code(s): E78.2 - Mixed hyperlipidemia Status: Chronic Assessment and Plan: * Continue Statin therapy (7) Diabetes mellitus: Code(s): E11.9 - Type 2 diabetes mellitus without complications Status: Chronic Assessment and Plan: * Hold oral hypoglycemics * SSI Low dose * Hypoglycemic protocol * Check A1C * Glucose checks AC and HS. (8) RLS (restless legs syndrome): Code(s): G25.81 - Restless legs syndrome Status: Acute Assessment and Plan: * Continue PRN Flexeril. HPI Date of Consult Consult date: 01/06/25 Requesting Physician: Jasper Zuluaga MD Primary Care Provider: Brenda Patel PA-C Consult Narrative Narrative: Gian Guardado is a 59 year old female with PMH of Breast cancer w/use of Arimidex for treatment, HTN, MDD, HLD and Pre-diabetes was admitted to the hospital for an elective Right Total Hip Arthroplasty by Dr. Zuluaga on 01/05/25. Medicine is consulted for assistance with medical management for electrolyte abnormalities as her Sodium and Potassium are low and also for her anemia. Pt is currently POD#1. She is participating with PT. Her Potassium this AM was 2.9 for which she is receiving a 40 mEq K-rider and her Sodium is noted to be 130. Pt does take a combination ACEI/HCTZ at home with a dose of 25 mg HCTZ, but she has never had to take any Potassium supplementation with it. She denies any CP/Dyspnea/Palpitations, but does report that she is experiencing some involuntary muscle contractions in the lower legs that are spasms and making her feel like she has RLS. She notes she has never had to be treated for this previously. Review of Systems 2 Review of Systems: All systems reviewed & are unremarkable except as noted in HPI and below PMFSH Past Medical History Medical History (Updated 01/06/25 @ 14:51 by YASMIN Gunn) RLS (restless legs syndrome) Diabetes mellitus Hypokalemia Hyponatremia Anemia BMI 34.0-34.9,adult Use of anastrozole (Arimidex) Breast CA Caregiver stress Essential (primary) hypertension MDD (major depressive disorder), recurrent episode, moderate Mixed hyperlipidemia Pre-diabetes Surgical History Surgical History (Updated 01/06/25 @ 14:34 by YASMIN Gunn) Status post total hip replacement, right S/P total hip arthroplasty H/O lumpectomy Family History Family History Mother Hypertension Family history of malignant neoplasm of breast in first degree relative Family history of coronary artery disease Patient's mother is Sibling Family history of atrial fibrillation Father Family history of lung cancer Social History Social History Social History: Smoking status: Never smoker Second hand tobacco smoke exposure: No Alcohol intake: former Substance use: never Substance use type: does not use Do You Feel Safe in your Home?: Yes Lack of Transportation: No Lack of Food: Never True Current Housing: I Have Housing Concerned About Future Housing: No Difficulty Paying Gas/Electric Bills: No Difficulty Paying for Meds: No Currently Unemployed: No Education: High School Diploma/GED Difficulty w/ Childcare or Family Care: No Living arrangements: with family Additional living arrangements comments: DAUGHTER Occupation/Education: occupation 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 Gender identity (if verbalized by the patient): Female Sexual Orientation (if Verbalized by the Patient): Straight or Heterosexual Spiritual care concerns: No Meds Home Medications and Allergies Home Medications ?Medication ?Instructions ?Recorded ?Confirmed ?Type clonazepam 0.5 mg tablet 0.5 mg PO DAILY PRN Anxiety 02/08/19 01/05/25 History omega-3 fatty acids-fish oil 360 1 cap PO DAILY 01/05/25 History mg-1,200 mg capsule cholecalciferol (vitamin D3) 1,250 50,000 unit PO 2XW 03/23/19 12/27/24 History mcg (50,000 unit) capsule cyclobenzaprine 10 mg tablet 10 mg PO TID PRN muscle s pasm 11/14/23 12/27/24 History gabapentin 300 mg capsule 300 mg PO TID 11/14/2301/05 History lisinopril 20 1 tablet PO DAILY #90 tabs 0 07/20/24 01/05/25 Rx mg-hydrochlorothiazide 25 mg tablet metformin 1,000 mg tablet See Rx Instructions .Route 0 08/27/24 01/05/25 Rx .COMPLEX #180 tabs celecoxib 200 mg capsule (Celebrex) 200 mg PO BID PRN pain 30 days #60 12/14/24 12/27/24 Rx caps pantoprazole 40 mg tablet,delayed 40 mg PO QAM PRN REF LUX 12/14/24 01/05/25 History release citalopram 40 mg tablet 40 mg PO HS 12/23/24 5 History furosemide 20 mg tablet 20 mg PO QAM PRN edema 12/2312/27/24 History triamcinolone acetonide 0.1 % 1 applic topical BID PRN skin 12/23/24 12/27/24 History topical cream irritation rosuvastatin 5 mg tablet See Rx Instructions .Route 0 12/31/24 01/05/25 Rx .COMPLEX #90 tabs aspirin 325 mg tablet,delayed 325 mg PO Q12HR 28 days #56 tabs 01/06/25 Rx release oxycodone-acetaminophen 5 mg-325 1 tablet PO Q4-6H PRN pain #30 tabs 01/06/25 Rx mg tablet Allergies Allergy/AdvReac Type Severity Reaction Status Date / Time sulfasalazine Allergy RASH Verified 12/27/24 10:54 Vital Signs Vital Signs - 24 hr 01/05/25 14:26 01/05/25 14:57 01/05/25 15:11 Temperature 97.6 F Pulse Rate 98 101 H Respiratory Rate 18 20 Blood Pressure 121/68 Pulse Oximetry 99 100 Oxygen Delivery Room Air Room Air 01/05/25 18:26 01/05/25 20:00 01/05/25 21:55 Temperature 98 F 98.5 F Pulse Rate 86 87 Respiratory Rate 17 18 Blood Pressure 113/64 107/45 L Pulse Oximetry 99 100 Oxygen Delivery Room Air 01/06/25 02:26 01/06/25 06:14 01/06/25 08:00 Temperature 98.0 F 98.0 F Pulse Rate 92 92 Respiratory Rate 14 18 Blood Pressure 120/76 96/51 L Pulse Oximetry 100 98 98 Oxygen Delivery Room Air 01/06/25 08:25 01/06/25 08:59 01/06/25 10:26 Temperature 97.2 F L Pulse Rate 93 Respiratory Rate 18 Blood Pressure 84/40 L 106/50 L 91/42 L Pulse Oximetry 100 Oxygen Delivery 01/06/25 12:29 Temperature Pulse Rate Respiratory Rate Blood Pressure 90/50 L Pulse Oximetry Oxygen Delivery Exam 2 Const: General: comfortable and no acute distress Other: Pleasant pt sitting up in bed at this time in no acute distress. HENMT: Mouth: Yes moist mucous membranes Eyes: Sclera: sclerae normal Neck: Neck: supple and no JVD Resp: Effort & Inspection: normal respiratory effort Auscultation: clear to auscultation bilaterally Cardio: Rate: regular rate Rhythm: regular rhythm Heart sounds: no gallops, no murmurs and no rubs GI: Inspection: non-distended GI Palp: Yes Soft to palpation and Yes Tenderness to palpation present (GI) Auscultation: normal bowel sounds Skin: General skin exam: normal color, no rashes or lesions noted and no erythema Wounds: wounds noted (Surgical wound to Right hip.) Neuro: Speech: normal speech Motor exam (neuro): 5/5 motor strength present throughout Sensory Exam: normal sensation Extrem: General: edema Other: Trace edema to RLE - SCD's and maira hose present bilaterally. Psych: Mental Status: mental status grossly normal Affect: normal affect Results Labs 01/06/25 12:00 01/06/25 12:00 Labs: Short CBC 01/06/25 01/06/25 Range/Units 07:20 12:00 WBC 8.2 8.1 (4.5-10.0) K/mm3 Hgb 7.9 L 7.9 L (12.0-15.0) g/dL Hct 24.8 L 24.5 L (37.0-47.0) % Plt Count 218 238 (150-375) k/mm3 BMP 01/06/25 01/06/25 07:20 12:00 Sodium 130 L 130 L Potassium 3.2 L 2.9 L Chloride 97 L 97 L Carbon Dioxide 27 25 BUN 17 19 H Creatinine 0.78 0.88 Glucose 115 H 111 H Calcium 8.0 L 8.0 L Quality VTE Prophylaxis VTE prophylaxis: pharmacologic ordered (ASA 325 mg po ordered by orthopedics.)
[2025-01-06] MEDS: CYCLOBENZAPRINE HCL 10 MG TABLET PO (14:48)
[2025-01-06 15:48] LABS: Hemoglobin A1C 4.8 % (<5.7)
[2025-01-06] MEDS: ROSUVASTATIN 5 MG TABLET BY MOUTH (17:19)
--- NOTE | 2025-01-06 18:01 | WPDANESPN ---
Anes - Prog Note Post-Op Date/Time: 01/06/25 18:01 Cardiovascular status: normal Respiratory status: normal Airway patency: baseline Mental status: baseline Post-Op hydration status: normal Vital Signs: Last Vital Signs Temp 36.2 C L 01/06/25 10:26 Pulse 99 01/06/25 16:00 Resp 18 01/06/25 10:26 BP 90/50 L 01/06/25 14:51 Pulse Ox 100 01/06/25 10:26 O2 Del Method Room Air 01/06/25 08:00 O2 Flow Rate 10 01/05/25 11:07 Pain Score (VAS): 0 I/O: Intake & Output 01/06/25 01/06/25 01/06/25 07:59 15:59 23:59 Intake Total 600 960 Balance 600 960 Laboratory Tests 01/06/25 12:00 01/06/25 12:00 01/06/25 01/06/25 01/06/25 07:20 11:58 12:00 WBC 8.2 8.1 RBC 2.82 L 2.83 L Hgb 7.9 L 7.9 L Hct 24.8 L 24.5 L MCV 87.9 86.6 MCH 28.0 27.9 MCHC 31.9 L 32.2 RDW 12.7 12.7 Plt Count 218 238 MPV 9.1 9.0 Immature Gran % (Auto) 0.2 Neut % (Auto) 75.6 H Lymph % (Auto) 9.9 L [place] % (Auto) 13.9 H Eos % (Auto) 0.0 Baso % (Auto) 0.4 Lymph # (Auto) 0.81 L [place] # (Auto) 1.1 H Eos # (Auto) 0.0 Baso # (Auto) 0.0 Abs Immat Gran (auto) 0.02 Absolute Neuts (auto) 6.2 Absolute Nucleated RBC 0.000 Nucleated RBC % 0.0 Sodium 130 L 130 L Potassium 3.2 L 2.9 L Chloride 97 L 97 L Carbon Dioxide 27 25 Anion Gap 6 8 BUN 17 19 H Creatinine 0.78 0.88 Estim Creat Clear Calc 82 73 Estimated GFR > 60 > 60 Glucose 115 H 111 H POC Capillary Glucose Hemoglobin A1c 4.8 Serum Osmolality Pending Calcium 8.0 L 8.0 L Magnesium 1.9 01/06/25 17:43 WBC RBC Hgb Hct MCV MCH MCHC RDW Plt Count MPV Immature Gran % (Auto) Neut % (Auto) Lymph % (Auto) [place] % (Auto) Eos % (Auto) Baso % (Auto) Lymph # (Auto) [place] # (Auto) Eos # (Auto) Baso # (Auto) Abs Immat Gran (auto) Absolute Neuts (auto) Absolute Nucleated RBC Nucleated RBC % Sodium Potassium Chloride Carbon Dioxide Anion Gap BUN Creatinine Estim Creat Clear Calc Estimated GFR Glucose POC Capillary Glucose 132 H Hemoglobin A1c Serum Osmolality Calcium Magnesium Post-procedural complaints: none Patient Feedback: Patient satisfied with anesthetic care.
[2025-01-06] MEDS: CITALOPRAM HYDROBROMIDE 20 MG TABLET 40 MG PO (20:16)
[2025-01-07] VITALS (12 sets, daily range): BP systolic 104–126; BP diastolic 53–72; PULSE 88–111; RESP 16–20; TEMP 36.1–36.9; O2SAT 98–100
[2025-01-07 05:58] LABS: Hematocrit 22.7 % (37.0-47.0); Hemoglobin 7.1 g/dL (12.0-15.0); Immature Granulocyte Percent A 0.5 % (0-0.5); Lymphocytes Absolute Auto 0.81 K/mm3 (0.9-3.2); Mean Corpuscular HGB Conc 31.3 g/dl (32-36); Mean Corpuscular Hemoglobin 27.5 pg (26-34); Mean Corpuscular Volume 88.0 fl (80-100); Nucleated Red Blood Cells Absolute Auto 0.020 K/mm3 (0.0-0.012); Nucleated Red Blood Cells Perc 0.3 % (0.0-0.2); Platelet Count Result 173 k/mm3 (150-375); Red Blood Count 2.58 M/mm3 (4.2-5.4); White Blood Count 6.2 K/mm3 (4.5-10.0)
[2025-01-07 06:21] LABS: Alanine Aminotransferase 12 U/L (6-35); Albumin Level 2.5 g/dL (3.5-5.1); Alkaline Phosphatase 73 U/L (38-126); Anion Gap 4 mmol/L (4-12); Aspartate Amino Transferase 40 U/L (14-36); Bilirubin,Total 0.5 mg/dL (0.2-1.3); Blood Urea Nitrogen 21 mg/dL (7-17); Calcium 8.0 mg/dL (8.4-10.2); Carbon Dioxide 27 mmol/L (22-30); Chloride 101 mmol/L (98-107); Estimated CRCL calculation 72 ml/min; Estimated Glomerular Filt Rate > 60; Glucose 106 mg/dL (65-110); Magnesium 2.1 mg/dL (1.6-2.3); Potassium 3.8 mmol/L (3.4-5.0); Sodium 132 mmol/L (137-145); Total Protein 4.6 g/dL (6.3-8.2)
--- NOTE | 2025-01-07 07:50 | P.CONIM_ITS ---
Assessment and Plan Assessment and plan (1) Status post total hip replacement, right: Code(s): Z96.641 - Presence of right artificial hip joint Status: Acute Assessment and Plan: * POD #2 - Care and management per Orthopedics. (2) Anemia: Code(s): D64.9 - Anemia, unspecified Status: Acute Assessment and Plan: * Likely secondary to #1 above. * Trend daily labs * Recommend transfusion if Hgb is less than or equal to 7. * 01/07: Hgb 7.1 - to receive 1 unit transfusion today (3) Hyponatremia: Code(s): E87.1 - Hypo-osmolality and hyponatremia Status: Acute Assessment and Plan: * Potentially multifactorial including dehydration vs. SIADH vs. side effect of Diuretics * Asymptomatic w/Sodium level of 130. * Trend labs * Obtain osmolalities and urine sodium to rule out SIADH * Fluid restrict to 1500 ml. * 01/07: Na 130 -> 132 (4) Hypokalemia: Code(s): E87.6 - Hypokalemia Status: Acute Assessment and Plan: * 40 mEq KCL rider given yesterday * Trend labs * Telemetry * Check Magnesium with AM labs * 01/07: K 3.8 (5) Essential (primary) hypertension: Code(s): I10 - Essential (primary) hypertension Status: Chronic Assessment and Plan: * Currently well controlled w/BPs running 80s/low 100s/40s-50s. * Continue to monitor. * Hold HCTZ at this time as BP's are running lower and Potassium is also low. Consider restarting when electrolytes are stable and her Hgb is trending upward. (6) Mixed hyperlipidemia: Code(s): E78.2 - Mixed hyperlipidemia Status: Chronic Assessment and Plan: * Continue Statin therapy (7) Diabetes mellitus: Code(s): E11.9 - Type 2 diabetes mellitus without complications Status: Chronic Assessment and Plan: * Hold oral hypoglycemics * SSI Low dose * Hypoglycemic protocol * A1C 4.8% * Glucose checks AC and HS. * Glucose levels well managed (8) RLS (restless legs syndrome): Code(s): G25.81 - Restless legs syndrome Status: Acute Assessment and Plan: * Continue PRN Flexeril. HPI Date of Consult Consult date: 01/07/25 Requesting Physician: Jasper Zuluaga MD Primary Care Provider: Brenda Patel PA-C Consult Narrative Narrative: Gian Guardado is a 59 year old female with PMH of Breast cancer w/use of Arimidex for treatment, HTN, MDD, HLD and Pre-diabetes was admitted to the hospital for an elective Right Total Hip Arthroplasty by Dr. Zuluaga on 01/05/25. Medicine is consulted for assistance with medical management for electrolyte abnormalities as her Sodium and Potassium are low and also for her anemia. Pt is currently POD#2. Patient was worked with Physical/Occupational therapy at time of examination. Repeat potassium this morning was 3.8, sodium up from 130->132. Continue minor fluid restriction. Denies any chest pain, shortness of breath, palpitations this morning. Hemoglobin down to 7.1, will receive 1 unit PRBC. Review of Systems 2 Review of Systems: All systems reviewed & are unremarkable except as noted in HPI and below PMFSH Past Medical History Medical History (Updated 01/06/25 @ 14:51 by YASMIN Gunn) RLS (restless legs syndrome) Diabetes mellitus Hypokalemia Hyponatremia Anemia BMI 34.0-34.9,adult Use of anastrozole (Arimidex) Breast CA Caregiver stress Essential (primary) hypertension MDD (major depressive disorder), recurrent episode, moderate Mixed hyperlipidemia Pre-diabetes Surgical History Surgical History (Updated 01/06/25 @ 14:34 by YASMIN Gunn) Status post total hip replacement, right S/P total hip arthroplasty H/O lumpectomy Family History Family History Mother Hypertension Family history of malignant neoplasm of breast in first degree relative Family history of coronary artery disease Patient's mother is Sibling Family history of atrial fibrillation Father Family history of lung cancer Social History Social History Social History: Smoking status: Never smoker Second hand tobacco smoke exposure: No Alcohol intake: former Substance use: never Substance use type: does not use Do You Feel Safe in your Home?: Yes Lack of Transportation: No Lack of Food: Never True Current Housing: I Have Housing Concerned About Future Housing: No Difficulty Paying Gas/Electric Bills: No Difficulty Paying for Meds: No Currently Unemployed: No Education: High School Diploma/GED Difficulty w/ Childcare or Family Care: No Living arrangements: with family Additional living arrangements comments: DAUGHTER Occupation/Education: occupation 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[employer] Gender identity (if verbalized by the patient): Female Sexual Orientation (if Verbalized by the Patient): Straight or Heterosexual Spiritual care concerns: No Meds Home Medications and Allergies Home Medications ?Medication ?Instructions ?Recorded ?Confirmed ?Type clonazepam 0.5 mg tablet 0.5 mg PO DAILY PRN Anxiety 02/08/19 01/05/25 History omega-3 fatty acids-fish oil 360 1 cap PO DAILY 01/05/25 History mg-1,200 mg capsule cholecalciferol (vitamin D3) 1,250 50,000 unit PO 2XW 03/23/19 12/27/24 History mcg (50,000 unit) capsule cyclobenzaprine 10 mg tablet 10 mg PO TID PRN muscle s pasm 11/14/23 12/27/24 History gabapentin 300 mg capsule 300 mg PO TID 11/14/2301/05 History lisinopril 20 1 tablet PO DAILY #90 tabs 0 07/20/24 01/05/25 Rx mg-hydrochlorothiazide 25 mg tablet metformin 1,000 mg tablet See Rx Instructions .Route 0 08/27/24 01/05/25 Rx .COMPLEX #180 tabs celecoxib 200 mg capsule (Celebrex) 200 mg PO BID PRN pain 30 days #60 12/14/24 12/27/24 Rx caps pantoprazole 40 mg tablet,delayed 40 mg PO QAM PRN REF LUX 12/14/24 01/05/25 History release citalopram 40 mg tablet 40 mg PO HS 12/23/24 5 History furosemide 20 mg tablet 20 mg PO QAM PRN edema 12/2312/27/24 History triamcinolone acetonide 0.1 % 1 applic topical BID PRN skin 12/23/24 12/27/24 History topical cream irritation rosuvastatin 5 mg tablet See Rx Instructions .Route 0 12/31/24 01/05/25 Rx .COMPLEX #90 tabs aspirin 325 mg tablet,delayed 325 mg PO Q12HR 28 days #56 tabs 01/06/25 Rx release oxycodone-acetaminophen 5 mg-325 1 tablet PO Q4-6H PRN pain #30 tabs 01/06/25 Rx mg tablet Allergies Allergy/AdvReac Type Severity Reaction Status Date / Time sulfasalazine Allergy RASH Verified 12/27/24 10:54 Vital Signs Vital Signs - 24 hr 01/06/25 08:00 01/06/25 08:25 01/06/25 08:59 Temperature Pulse Rate Respiratory Rate Blood Pressure 84/40 L 106/50 L Pulse Oximetry 98 Oxygen Delivery Room Air 01/06/25 10:26 01/06/25 12:29 01/06/25 14:51 Temperature 97.2 F L Pulse Rate 93 Respiratory Rate 18 Blood Pressure 91/42 L 90/50 L 90/50 L Pulse Oximetry 100 Oxygen Delivery 01/06/25 16:00 01/06/25 16:00 01/06/25 19:02 Temperature 97.9 F Pulse Rate 99 103 H Respiratory Rate 16 Blood Pressure 86/58 L 105/50 L Pulse Oximetry 98 Oxygen Delivery 01/06/25 20:00 01/06/25 20:00 01/06/25 21:19 Temperature 98.1 F Pulse Rate 105 H 102 H Respiratory Rate 16 Blood Pressure 92/52 L Pulse Oximetry 99 Oxygen Delivery Room Air 01/06/25 21:47 01/07/25 00:00 01/07/25 04:00 Temperature Pulse Rate 93 88 Respiratory Rate Blood Pressure Pulse Oximetry 99 Oxygen Delivery Room Air Exam 2 Const: General: comfortable and no acute distress Other: Pleasant pt sitting up in bed at this time in no acute distress. HENMT: Mouth: Yes moist mucous membranes Eyes: Sclera: sclerae normal Neck: Neck: supple and no JVD Resp: Effort & Inspection: normal respiratory effort Auscultation: clear to auscultation bilaterally Cardio: Rate: regular rate Rhythm: regular rhythm Heart sounds: no gallops, no murmurs and no rubs GI: Inspection: non-distended Auscultation: normal bowel sounds Skin: General skin exam: normal color, no rashes or lesions noted, no erythema and wounds noted (Surgical wound to Right hip.) Wounds: wounds noted (Surgical wound to Right hip.) Neuro: Speech: normal speech Motor exam (neuro): 5/5 motor strength present throughout Sensory Exam: normal sensation Extrem: General: edema Other: Trace edema to RLE - SCD's and maira hose present bilaterally. Psych: Mental Status: mental status grossly normal Affect: normal affect Results Labs 01/07/25 05:31 01/07/25 05:31 Labs: Short CBC 01/06/25 01/06/25 01/07/25 Range/Units 07:20 12:00 05:31 WBC 8.2 8.1 6.2 (4.5-10.0) K/mm3 Hgb 7.9 L 7.9 L 7.1 L (12.0-15.0) g/dL Hct 24.8 L 24.5 L 22.7 L (37.0-47.0) % Plt Count 218 238 173 (150-375) k/mm3 BMP 01/06/25 01/06/25 01/07/25 07:20 12:00 05:31 Sodium 130 L 130 L 132 L Potassium 3.2 L 2.9 L 3.8 Chloride 97 L 97 L 101 Carbon Dioxide 27 25 27 BUN 17 19 H 21 H Creatinine 0.78 0.88 0.90 Glucose 115 H 111 H 106 Calcium 8.0 L 8.0 L 8.0 L Liver Function 01/07/25 Range/Units 05:31 Total Bilirubin 0.5 (0.2-1.3) mg/dL AST 40 H (14-36) U/L ALT 12 (6-35) U/L Alkaline Phosphatase 73 (38-126) U/L Albumin 2.5 L (3.5-5.1) g/dL Quality VTE Prophylaxis VTE prophylaxis: pharmacologic ordered (ASA 325 mg po ordered by orthopedics.)
[2025-01-07] MEDS: GABAPENTIN 300 MG CAPSULE PO ×3 (09:17→16:30)
[2025-01-07] MEDS: ASPIRIN 325 MG ENTERIC TABLET PO ×2 (09:17→21:45)
--- NOTE | 2025-01-07 09:37 | P.PNOP_ITS ---
Progress Note: A&P Assessment and Plan (1) S/P total hip arthroplasty: Qualifiers: Laterality: right Qualified Code(s): Z96.641 - Presence of right artificial hip joint Code(s): Z96.649 - Presence of unspecified artificial hip joint Status: Acute Assessment and Plan: POD #2: Right JOSELUIS Hgb 7.1, trending down. Continue PT/OT. WBAT. Walker. HIGH FALL RISK. Continue pain control. Ice Hip. Protect skin. DVT prophylaxis with Aspirin. SCDs. Incentive Spirometry Use reviewed. Monitor Dressing. Change prior to discharge. Bowel Regimen. Dispo: Home with Home Health, likely tomorrow, pending progress with PT/OT and improvement in BP. (2) Hyponatremia: Code(s): E87.1 - Hypo-osmolality and hyponatremia Status: Acute Assessment and Plan: Medicine team following, appreciate input. (3) Hypokalemia: Code(s): E87.6 - Hypokalemia Status: Acute Assessment and Plan: Medicine team following, appreciate input. (4) Anemia: Code(s): D64.9 - Anemia, unspecified Status: Acute Assessment and Plan: HgB 7.1. Transfusion per Dr. Zuluaga today. Plan Reviewed history, exam, radiographs and current labs with attending MD and covering surgeon, Dr. Zuluaga, who agrees with current plan as indicated above. No further recommendations from Dr. Zuluaga at this time. Subjective Subjective Date/Time Seen: 01/07/ 09:37 Post Op day: 2 Interval history: POD#2: Right JOSELUIS Patient with overall improvement in right hip pain. HgB at 7.1 today. Slow progress with PT/OT due to hypotension, lab abnormalities. Exam Const: General: comfortable and no acute distress Resp: Effort & Inspection: normal respiratory effort Cardio: Rate: regular rate Rhythm: regular rhythm GI: Inspection: non-distended Skin: General skin exam: normal color Other: Incision right hip c/d/i. Surrounding tissue without redness/warmth. Mild swelling consistent with recent surgery. No drainage. Neuro: Cognition (Neuro): normal cognition Speech: normal speech Extrem: Right lower extremity: normal to inspection, normal capillary refill, hip/thigh Details: tenderness Location: of the hip (Thigh soft ) Location: laterally and anteriorly, swelling Location: at the hip, abnormal ROM (limited consistent with recent surgery ) Details: pain with active ROM during and pain with passive ROM during and other (Incision c/d/i. ); no deformity and no unusual warmth, knee Details: normal to inspection; no tenderness and no swelling, lower leg (Negative Ritesh's Sign ) Details: normal to inspection and no edema; no tenderness, ankle (+ankle dorsiflexion/plantarflexion) Details: normal to inspection and no edema; no tenderness, no swelling and no ecchymosis and foot Details: normal capillary refill, toes with normal ROM, vascular exam Details: dorsalis pedis pulse present and motor-sensory exam Details: light- touch normal; no tenderness Objective Data Vital Signs Vital Signs: Vital Signs - 24 hr 01/06/25 10:26 01/06/25 12:29 01/06/25 14:51 Temperature 36.2 C L Pulse Rate 93 Respiratory Rate 18 Blood Pressure 91/42 L 90/50 L 90/50 L Pulse Oximetry 100 Oxygen Delivery 01/06/25 16:00 01/06/25 16:00 01/06/25 19:02 Temperature 36.6 C Pulse Rate 99 103 H Respiratory Rate 16 Blood Pressure 86/58 L 105/50 L Pulse Oximetry 98 Oxygen Delivery 01/06/25 20:00 01/06/25 20:00 01/06/25 21:19 Temperature 36.7 C Pulse Rate 105 H 102 H Respiratory Rate 16 Blood Pressure 92/52 L Pulse Oximetry 99 Oxygen Delivery Room Air 01/06/25 21:47 01/07/25 00:00 01/07/25 04:00 Temperature Pulse Rate 93 88 Respiratory Rate Blood Pressure Pulse Oximetry 99 Oxygen Delivery Room Air 01/07/25 08:00 Temperature Pulse Rate 103 H Respiratory Rate Blood Pressure Pulse Oximetry Oxygen Delivery Intake/Output Intake/Output: Intake & Output 01/04/25 01/05/25 01/06/25 01/07/25 23:59 23:59 23:59 23:59 Intake Total 1200 1560 630 Output Total 1200 Balance 1200 1560 -570 Meds/Results Medications: Active Medications Generic Name Dose Route Start Last Admin Trade Name Freq PRN Reason Stop Dose Admin Acetaminophen 500 mg 01/05/25 12:41 Acetaminophen 500 Mg Tablet PO Q6H PRN Pain Rated 1-3 Aspirin 325 mg 01/05/25 12:55 01/07/25 09:17 Aspirin 325 Mg Enteric Tablet PO 325 mg Q12HR YESSI Administration Celecoxib 200 mg 01/05/25 12:41 01/06/25 08:16 Celecoxib 200 Mg Capsule PO 200 mg BID PRN Administration Pain Citalopram Hydrobromide 40 mg 01/05/25 21:00 01/06/25 20:16 Citalopram Hydrobromide 20 Mg Tablet PO 40 mg HS YESSI Administration Clonazepam 0.5 mg 01/05/25 12:41 Clonazepam (*Crx) 0.5 Mg Tablet PO DAILY PRN Anxiety Cyclobenzaprine HCl 10 mg 01/05/25 12:55 01/06/25 14:48 Cyclobenzaprine Hcl 10 Mg Tablet PO 10 mg TID PRN Administration Muscle Spasm Dextrose 12.5 gm 01/06/25 14:57 Dextrose 50% 25 Gm/50 Ml Syringe IV PUSH PRN PRN Hypoglycemia Protocol Diazepam 5 mg 01/05/25 12:55 Diazepam (*Crx) 5 Mg Tablet PO Q6H PRN Anxiety/Muscle Spasm Diphenhydramine HCl 25 mg 01/05/25 12:41 Diphenhydramine Hcl Inj 50 Mg/Ml Vial IV PUSH Q6H PRN Itching Fentanyl Citrate 25 mcg 01/04/25 13:46 01/05/25 11:34 Fentanyl Citrate Inj (*Crx) 100 Mcg/2 Ml Vial IV PUSH 25 mcg Q2M PRN Administration Pain Furosemide 20 mg 01/05/25 12:41 Furosemide 20 Mg Tablet PO QAM PRN Edema Gabapentin 300 mg 01/05/25 17:00 01/07/25 09:17 Gabapentin 300 Mg Capsule PO 300 mg TID YESSI Administration Glucose 15 gm 01/06/25 14:57 Glucose Oral Gel 15 Gm Of Glucse In 37.5 Gm Tube PO PRN PRN Hypoglycemia Protocol Hydrochlorothiazide 25 mg 01/05/25 14:00 01/06/25 08:12 Hydrochlorothiazide 25 Mg Tablet PO Not Given On Hold: 01/06/25 14:56 QAM YESSI Hydromorphone HCl 1 mg 01/05/25 12:41 Hydromorphone Hcl Inj (*Crx) 1 Mg/Ml Syr IV PUSH Q2H PRN Breakthrough Pain Rated 7-10 or NPO Hydromorphone HCl 0.5 mg 01/05/25 12:41 Hydromorphone Hcl Inj (*Crx) 1 Mg/Ml Syr IV PUSH Q2H PRN Breakthrough Pain Rated 4-6 or NPO Ibuprofen 800 mg in 200 mls @ 400 mls/hr 01/05/25 12:41 01/06/25 10:00 Caldolor 800 Mg/200 Ml IVPB 400 mls/hr Q6H PRN Administration Breakthrough Pain Rated 1-3 or NPO Dextrose 1,000 mls @ 100 mls/hr 01/06/25 14:57 Dextrose 5% 1,000 Ml IVPB PRN PRN Hypoglycemia Protocol Sodium Chloride 250 mls @ 30 mls/hr 01/07/25 09:22 Normal Saline Iv IV CONT 01/07/25 17:41 .Q8H20M STA Insulin Aspart 2 - 5 units 01/06/25 17:00 01/07/25 09:14 Insulin Aspart (*Bkc) 100 Units/Ml SUB-Q Not Given TIDWM YESSI Protocol Insulin Aspart 1 - 2 units 01/06/25 21:00 01/06/25 21:52 Insulin Aspart (*Bkc) 100 Units/Ml SUB-Q Not Given HS [facility] Protocol Lisinopril 20 mg 01/05/25 14:00 01/07/25 09:18 Lisinopril 20 Mg Tablet PO Not Given QAM YESSI Metformin HCl 1,000 mg 01/05/25 17:00 01/06/25 08:12 Metformin Hcl 500 Mg Tablet BY MOUTH 1,000 mg On Hold: 01/06/25 14:56 BIDWM YESSI Administration Naloxone HCl 0.1 mg 01/05/25 12:41 Naloxone Hcl 0.4 Mg/Ml Vial IV PUSH Q2M PRN Opiate Reversal Ondansetron HCl 4 mg 01/04/25 13:46 Ondansetron Inj 4 Mg/2 Ml Vial IV PUSH ONCE PRN Nausea Ondansetron HCl 4 mg 01/05/25 12:41 Ondansetron Inj 4 Mg/2 Ml Vial IV PUSH Q4H PRN Nausea And Vomiting Oxycodone/Acetaminophen 1 tablet 01/05/25 12:41 Oxycodone/Acetaminophen (*Crx) 5-325 Mg Tablet PO Q4H PRN Pain Rated 4-6 Oxycodone/Acetaminophen 1 tab 01/05/25 12:41 Oxycodone/Acetaminophen (*Crx) 10-325 Mg Tablet PO Q6H PRN Pain Rated 7-10 Pantoprazole Sodium 40 mg 01/05/25 12:41 Pantoprazole 40 Mg Tablet PO QAM PRN Reflux Polyethylene Glycol 17 gm 01/05/25 13:15 01/07/25 09:18 Polyethylene Glycol 3350 17 Gm Powd.Pack PO Not Given QAM [facility] Rosuvastatin Calcium 5 mg 01/05/25 17:00 01/06/25 17:19 Rosuvastatin 5 Mg Tablet BY MOUTH 5 mg DAILY@1700 [facility] Administration Senna/Docusate Sodium 2 tab 01/05/25 13:15 01/07/25 09:18 Senna/Docusate Sodium Tablet PO Not Given BID [facility] Labs Labs: Laboratory Results - last 24 hr 01/06/25 01/06/25 01/06/25 11:58 12:00 17:43 WBC 8.1 RBC 2.83 L Hgb 7.9 L Hct 24.5 L MCV 86.6 MCH 27.9 MCHC 32.2 RDW 12.7 Plt Count 238 MPV 9.0 Immature Gran % (Auto) Neut % (Auto) Lymph % (Auto) [place] % (Auto) Eos % (Auto) Baso % (Auto) Lymph # (Auto) [place] # (Auto) Eos # (Auto) Baso # (Auto) Abs Immat Gran (auto) Absolute Neuts (auto) Absolute Nucleated RBC Nucleated RBC % Sodium 130 L Potassium 2.9 L Chloride 97 L Carbon Dioxide 25 Anion Gap 8 BUN 19 H Creatinine 0.88 Estim Creat Clear Calc 73 Estimated GFR > 60 Glucose 111 H POC Capillary Glucose 132 H Hemoglobin A1c 4.8 Calcium 8.0 L Magnesium 1.9 Total Bilirubin AST ALT Alkaline Phosphatase Total Protein Albumin Ur Random Sodium 01/06/25 01/07/25 01/07/25 20:30 03:29 05:31 WBC 6.2 RBC 2.58 L Hgb 7.1 L Hct 22.7 L MCV 88.0 MCH 27.5 MCHC 31.3 L RDW 12.8 Plt Count 173 MPV 9.4 Immature Gran % (Auto) 0.5 Neut % (Auto) 69.9 Lymph % (Auto) 13.1 L [place] % (Auto) 16.0 H Eos % (Auto) 0.2 Baso % (Auto) 0.3 Lymph # (Auto) 0.81 L [place] # (Auto) 1.0 H Eos # (Auto) 0.0 Baso # (Auto) 0.0 Abs Immat Gran (auto) 0.03 Absolute Neuts (auto) 4.3 Absolute Nucleated RBC 0.020 H Nucleated RBC % 0.3 H Sodium 132 L Potassium 3.8 Chloride 101 Carbon Dioxide 27 Anion Gap 4 BUN 21 H Creatinine 0.90 Estim Creat Clear Calc 72 Estimated GFR > 60 Glucose 106 POC Capillary Glucose 122 H Hemoglobin A1c Calcium 8.0 L Magnesium 2.1 Total Bilirubin 0.5 AST 40 H ALT 12 Alkaline Phosphatase 73 Total Protein 4.6 L Albumin 2.5 L Ur Random Sodium 25 09// 07:29 WBC RBC Hgb Hct MCV MCH MCHC RDW Plt Count MPV Immature Gran % (Auto) Neut % (Auto) Lymph % (Auto) [place] % (Auto) Eos % (Auto) Baso % (Auto) Lymph # (Auto) [place] # (Auto) Eos # (Auto) Baso # (Auto) Abs Immat Gran (auto) Absolute Neuts (auto) Absolute Nucleated RBC Nucleated RBC % Sodium Potassium Chloride Carbon Dioxide Anion Gap BUN Creatinine Estim Creat Clear Calc Estimated GFR Glucose POC Capillary Glucose 83 Hemoglobin A1c Calcium Magnesium Total Bilirubin AST ALT Alkaline Phosphatase Total Protein Albumin Ur Random Sodium
[2025-01-07] MEDS: SODIUM CHLORIDE 0.9% IV 250 ML 30 ML IV CONT (12:20)
[2025-01-07] MEDS: ROSUVASTATIN 5 MG TABLET BY MOUTH (16:30)
[2025-01-07] MEDS: CITALOPRAM HYDROBROMIDE 20 MG TABLET 40 MG PO (21:45)
[2025-01-08] VITALS: PULSE 105
[2025-01-08 04:00] VITALS: PULSE 96
[2025-01-08 06:35] VITALS: BP 133/71; PULSE 97; RESP 18; TEMP 36.6; O2SAT 99
--- NOTE | 2025-01-08 07:01 | P.CONIM_ITS ---
Assessment and Plan Assessment and plan (1) Status post total hip replacement, right: Code(s): Z96.641 - Presence of right artificial hip joint Status: Acute Assessment and Plan: * POD #3 - Care and management per Orthopedics. (2) Anemia: Code(s): D64.9 - Anemia, unspecified Status: Acute Assessment and Plan: * Likely secondary to #1 above. * Trend daily labs * Recommend transfusion if Hgb is less than or equal to 7. * 01/08: Hgb 8.4 (3) Hyponatremia: Code(s): E87.1 - Hypo-osmolality and hyponatremia Status: Acute Assessment and Plan: * Potentially multifactorial including dehydration vs. SIADH vs. side effect of Diuretics * Asymptomatic w/Sodium level of 130. * Trend labs * Obtain osmolalities and urine sodium to rule out SIADH * Fluid restrict to 1500 ml. * 01/08 : Na 130 -> 132 -> 134 (4) Hypokalemia: Code(s): E87.6 - Hypokalemia Status: Acute Assessment and Plan: * 40 mEq KCL rider given yesterday * Trend labs * Telemetry * Check Magnesium with AM labs * 01/08: K 3.4 (5) Essential (primary) hypertension: Code(s): I10 - Essential (primary) hypertension Status: Chronic Assessment and Plan: * Currently well controlled w/BPs running 80s/low 100s/40s-50s. * Continue to monitor. * Hold HCTZ at this time as BP's are running lower and Potassium is also low. Consider restarting when electrolytes are stable and her Hgb is trending upward. (6) Mixed hyperlipidemia: Code(s): E78.2 - Mixed hyperlipidemia Status: Chronic Assessment and Plan: * Continue Statin therapy (7) Diabetes mellitus: Code(s): E11.9 - Type 2 diabetes mellitus without complications Status: Chronic Assessment and Plan: * Hold oral hypoglycemics * SSI Low dose * Hypoglycemic protocol * A1C 4.8% * Glucose checks AC and HS. * Glucose levels well managed (8) RLS (restless legs syndrome): Code(s): G25.81 - Restless legs syndrome Status: Acute Assessment and Plan: * Continue PRN Flexeril. HPI Date of Consult Consult date: 01/08/25 Requesting Physician: Jasper Zuluaga MD Primary Care Provider: LEXI HortaC Consult Narrative Narrative: Gian Guardado is a 59 year old female with PMH of Breast cancer w/use of Arimidex for treatment, HTN, MDD, HLD and Pre-diabetes was admitted to the hospital for an elective Right Total Hip Arthroplasty by Dr. Zuluaga on 01/05/25. Medicine is consulted for assistance with medical management for electrolyte abnormalities as her Sodium and Potassium are low and also for her anemia. Pt is currently POD# 3. Worked with PT/OT this morning without complications. Na uptrending, K remains normal. Continue fluid restriction. Denies CP, SOB, n/v. Likely to be discharged soon, home with home health. Review of Systems 2 Review of Systems: All systems reviewed & are unremarkable except as noted in HPI and below PMFSH Past Medical History Medical History (Updated 01/06/25 @ 14:51 by YASMIN Gunn) RLS (restless legs syndrome) Diabetes mellitus Hypokalemia Hyponatremia Anemia BMI 34.0-34.9,adult Use of anastrozole (Arimidex) Breast CA Caregiver stress Essential (primary) hypertension MDD (major depressive disorder), recurrent episode, moderate Mixed hyperlipidemia Pre-diabetes Surgical History Surgical History (Updated 01/06/25 @ 14:34 by YASMIN Gunn) Status post total hip replacement, right S/P total hip arthroplasty H/O lumpectomy Family History Family History Mother Hypertension Family history of malignant neoplasm of breast in first degree relative Family history of coronary artery disease Patient's mother is Sibling Family history of atrial fibrillation Father Family history of lung cancer Social History Social History Social History: Smoking status: Never smoker Second hand tobacco smoke exposure: No Alcohol intake: former Substance use: never Substance use type: does not use Do You Feel Safe in your Home?: Yes Lack of Transportation: No Lack of Food: Never True Current Housing: I Have Housing Concerned About Future Housing: No Difficulty Paying Gas/Electric Bills: No Difficulty Paying for Meds: No Currently Unemployed: No Education: High School Diploma/GED Difficulty w/ Childcare or Family Care: No Living arrangements: with family Additional living arrangements comments: DAUGHTER Occupation/Education: occupation 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 Gender identity (if verbalized by the patient): Female Sexual Orientation (if Verbalized by the Patient): Straight or Heterosexual Spiritual care concerns: No Meds Home Medications and Allergies Home Medications ?Medication ?Instructions ?Recorded ?Confirmed ?Type clonazepam 0.5 mg tablet 0.5 mg PO DAILY PRN Anxiety 02/08/19 01/05/25 History omega-3 fatty acids-fish oil 360 1 cap PO DAILY 01/05/25 History mg-1,200 mg capsule cholecalciferol (vitamin D3) 1,250 50,000 unit PO 2XW 03/23/19 12/27/24 History mcg (50,000 unit) capsule cyclobenzaprine 10 mg tablet 10 mg PO TID PRN muscle s pasm 11/14/23 12/27/24 History gabapentin 300 mg capsule 300 mg PO TID 11/14/2301/05 History lisinopril 20 1 tablet PO DAILY #90 tabs 0 07/20/24 01/05/25 Rx mg-hydrochlorothiazide 25 mg tablet metformin 1,000 mg tablet See Rx Instructions .Route 0 08/27/24 01/05/25 Rx .COMPLEX #180 tabs celecoxib 200 mg capsule (Celebrex) 200 mg PO BID PRN pain 30 days #60 12/14/24 12/27/24 Rx caps pantoprazole 40 mg tablet,delayed 40 mg PO QAM PRN REF LUX 12/14/24 01/05/25 History release citalopram 40 mg tablet 40 mg PO HS 12/23/24 5 History furosemide 20 mg tablet 20 mg PO QAM PRN edema 12/2312/27/24 History triamcinolone acetonide 0.1 % 1 applic topical BID PRN skin 12/23/24 12/27/24 History topical cream irritation rosuvastatin 5 mg tablet See Rx Instructions .Route 0 12/31/24 01/05/25 Rx .COMPLEX #90 tabs aspirin 325 mg tablet,delayed 325 mg PO Q12HR 28 days #56 tabs 01/06/25 Rx release oxycodone-acetaminophen 5 mg-325 1 tablet PO Q4-6H PRN pain #30 tabs 01/06/25 Rx mg tablet Allergies Allergy/AdvReac Type Severity Reaction Status Date / Time sulfasalazine Allergy RASH Verified 12/27/24 10:54 Vital Signs Vital Signs - 24 hr 01/07/25 08:00 01/07/25 11:07 01/07/25 11:24 Temperature 97.1 F L 98.0 F Pulse Rate 103 H 100 98 Respiratory Rate 18 16 Blood Pressure 107/57 L 106/61 Pulse Oximetry 100 100 Oxygen Delivery 01/07/25 12:00 01/07/25 12:24 01/07/25 13:24 Temperature 98.4 F 97.6 F Pulse Rate 104 H 111 H 100 Respiratory Rate 20 16 Blood Pressure 104/53 L 119/60 Pulse Oximetry 100 100 Oxygen Delivery 01/07/25 14:24 01/07/25 16:00 01/07/25 20:00 Temperature 97.0 F L Pulse Rate 101 H 98 Respiratory Rate 18 Blood Pressure 126/72 Pulse Oximetry 98 Oxygen Delivery Room Air 01/07/25 20:00 01/07/25 21:52 01/08/25 00:00 Temperature 98.4 F Pulse Rate 105 H 105 H 105 H Respiratory Rate 18 Blood Pressure 126/67 Pulse Oximetry 98 Oxygen Delivery 01/08/25 04:00 01/08/25 06:35 Temperature 97.9 F Pulse Rate 96 97 Respiratory Rate 18 Blood Pressure 133/71 Pulse Oximetry 99 Oxygen Delivery Exam 2 Const: General: comfortable and no acute distress Other: Pleasant pt sitting up in bed at this time in no acute distress. HENMT: Mouth: Yes moist mucous membranes Eyes: Sclera: sclerae normal Neck: Neck: supple and no JVD Resp: Effort & Inspection: normal respiratory effort Auscultation: clear to auscultation bilaterally Cardio: Rate: regular rate Rhythm: regular rhythm Heart sounds: no gallops, no murmurs and no rubs GI: Inspection: non-distended Auscultation: normal bowel sounds Skin: General skin exam: normal color, no rashes or lesions noted, no erythema and wounds noted (Surgical wound to Right hip.) Wounds: wounds noted (Surgical wound to Right hip.) Neuro: Speech: normal speech Motor exam (neuro): 5/5 motor strength present throughout Sensory Exam: normal sensation Extrem: General: edema Other: Trace edema to RLE - SCD's and maira hose present bilaterally. Psych: Mental Status: mental status grossly normal Affect: normal affect Results Labs 01/08/25 07:43 01/08/25 07:43 Quality VTE Prophylaxis VTE prophylaxis: pharmacologic ordered (ASA 325 mg po ordered by orthopedics.)
[2025-01-08 07:53] LABS: Hematocrit 26.4 % (37.0-47.0); Hemoglobin 8.4 g/dL (12.0-15.0); Immature Granulocyte Percent A 0.2 % (0-0.5); Lymphocytes Absolute Auto 0.98 K/mm3 (0.9-3.2); Mean Corpuscular HGB Conc 31.8 g/dl (32-36); Mean Corpuscular Hemoglobin 27.6 pg (26-34); Mean Corpuscular Volume 86.8 fl (80-100); Nucleated Red Blood Cells Absolute Auto 0.000 K/mm3 (0.0-0.012); Nucleated Red Blood Cells Perc 0.0 % (0.0-0.2); Platelet Count Result 250 k/mm3 (150-375); Red Blood Count 3.04 M/mm3 (4.2-5.4); White Blood Count 6.4 K/mm3 (4.5-10.0)
[2025-01-08 08:00] VITALS: BP 120/71; PULSE 102; PULSE 93; RESP 18; TEMP 36.6; O2SAT 100
[2025-01-08 08:35] LABS: Alanine Aminotransferase 17 U/L (6-35); Albumin Level 3.1 g/dL (3.5-5.1); Alkaline Phosphatase 89 U/L (38-126); Anion Gap 3 mmol/L (4-12); Aspartate Amino Transferase 44 U/L (14-36); Bilirubin,Total 0.7 mg/dL (0.2-1.3); Blood Urea Nitrogen 11 mg/dL (7-17); Calcium 8.3 mg/dL (8.4-10.2); Carbon Dioxide 30 mmol/L (22-30); Chloride 101 mmol/L (98-107); Estimated CRCL calculation 109 ml/min; Estimated Glomerular Filt Rate > 60; Glucose 108 mg/dL (65-110); Potassium 3.4 mmol/L (3.4-5.0); Sodium 134 mmol/L (137-145); Total Protein 5.9 g/dL (6.3-8.2)
[2025-01-08] MEDS: GABAPENTIN 300 MG CAPSULE PO ×2 (09:03→12:06)
[2025-01-08] MEDS: ASPIRIN 325 MG ENTERIC TABLET PO (09:03)
[2025-01-08] MEDS: SENNA/DOCUSATE SODIUM TABLET 2 TAB PO (09:03)
[2025-01-08 12:00] VITALS: BP 125/73; PULSE 90; PULSE 95; RESP 16; TEMP 36.6; O2SAT 100
--- NOTE | 2025-01-08 13:14 | WPDPN ---
Progress Note: A&P Assessment and Plan (1) S/P total hip arthroplasty: Qualifiers: Laterality: right Qualified Code(s): Z96.641 - Presence of right artificial hip joint Code(s): Z96.649 - Presence of unspecified artificial hip joint Status: Acute (2) Status post total hip replacement, right: Code(s): Z96.641 - Presence of right artificial hip joint Status: Acute Assessment and Plan: POD 3 DOING WELL. OK TO DC HOME F/U IN 3 WEEKS. Subjective Date/time seen: 01/08/25 13:14 Interval history: POD3 DOING MUCH BETTER. DOING WELL WITH PT. PAIN WELL CONTROLLED. HGB IMPROVED. NO SOB OR FATIGUE BP STABLE. Exam Extrem: Other: VSS AFEBRILE DRESSING DRY NV INTACT NEG HOMANS SIGN THIGH AND CALF SOFT NON TENDER Objective Data Vital Signs Vital Signs: Vital Signs - 24 hr 01/07/25 13:24 01/07/25 14:24 01/07/25 16:00 Temperature 36.4 C 36.1 C L Pulse Rate 100 101 H 98 Respiratory Rate 16 18 Blood Pressure 119/60 126/72 Pulse Oximetry 100 98 Oxygen Delivery 01/07/25 20:00 01/07/25 20:00 01/07/25 21:52 Temperature 36.9 C Pulse Rate 105 H 105 H Respiratory Rate 18 Blood Pressure 126/67 Pulse Oximetry 98 Oxygen Delivery Room Air 01/08/25 00:00 01/08/25 04:00 01/08/25 06:35 Temperature 36.6 C Pulse Rate 105 H 96 97 Respiratory Rate 18 Blood Pressure 133/71 Pulse Oximetry 99 Oxygen Delivery 01/08/25 08:00 01/08/25 09:19 01/08/25 12:00 Temperature 36.6 C 36.6 C Pulse Rate 93 90 Respiratory Rate 18 16 Blood Pressure 120/71 125/73 Pulse Oximetry 100 100 Oxygen Delivery Room Air Intake/Output Intake/Output: Intake & Output 01/05/25 01/06/25 01/07/25 01/08/25 23:59 23:59 23:59 23:59 Intake Total 1200 1560 1720 630 Output Total 1200 Balance 1200 1560 520 630 Meds/Results Medications: Active Medications Generic Name Dose Route Start Last Admin Trade Name Freq PRN Reason Stop Dose Admin Acetaminophen 500 mg 01/05/25 12:41 Acetaminophen 500 Mg Tablet PO Q6H PRN Pain Rated 1-3 Aspirin 325 mg 01/05/25 12:55 01/08/25 09:03 Aspirin 325 Mg Enteric Tablet PO 325 mg Q12HR YESSI Administration Celecoxib 200 mg 01/05/25 12:41 01/06/25 08:16 Celecoxib 200 Mg Capsule PO 200 mg BID PRN Administration Pain Citalopram Hydrobromide 40 mg 01/05/25 21:00 01/07/25 21:45 Citalopram Hydrobromide 20 Mg Tablet PO 40 mg HS YESSI Administration Clonazepam 0.5 mg 01/05/25 12:41 Clonazepam (*Crx) 0.5 Mg Tablet PO DAILY PRN Anxiety Cyclobenzaprine HCl 10 mg 01/05/25 12:55 01/06/25 14:48 Cyclobenzaprine Hcl 10 Mg Tablet PO 10 mg TID PRN Administration Muscle Spasm Dextrose 12.5 gm 01/06/25 14:57 Dextrose 50% 25 Gm/50 Ml Syringe IV PUSH PRN PRN Hypoglycemia Protocol Diazepam 5 mg 01/05/25 12:55 Diazepam (*Crx) 5 Mg Tablet PO Q6H PRN Anxiety/Muscle Spasm Diphenhydramine HCl 25 mg 01/05/25 12:41 Diphenhydramine Hcl Inj 50 Mg/Ml Vial IV PUSH Q6H PRN Itching Fentanyl Citrate 25 mcg 01/04/25 13:46 01/05/25 11:34 Fentanyl Citrate Inj (*Crx) 100 Mcg/2 Ml Vial IV PUSH 25 mcg Q2M PRN Administration Pain Furosemide 20 mg 01/05/25 12:41 Furosemide 20 Mg Tablet PO QAM PRN Edema Gabapentin 300 mg 01/05/25 17:00 01/08/25 12:06 Gabapentin 300 Mg Capsule PO 300 mg TID YESSI Administration Glucose 15 gm 01/06/25 14:57 Glucose Oral Gel 15 Gm Of Glucse In 37.5 Gm Tube PO PRN PRN Hypoglycemia Protocol Hydrochlorothiazide 25 mg 01/05/25 14:00 01/06/25 08:12 Hydrochlorothiazide 25 Mg Tablet PO Not Given On Hold: 01/06/25 14:56 QAM YESSI Hydromorphone HCl 1 mg 01/05/25 12:41 Hydromorphone Hcl Inj (*Crx) 1 Mg/Ml Syr IV PUSH Q2H PRN Breakthrough Pain Rated 7-10 or NPO Hydromorphone HCl 0.5 mg 01/05/25 12:41 Hydromorphone Hcl Inj (*Crx) 1 Mg/Ml Syr IV PUSH Q2H PRN Breakthrough Pain Rated 4-6 or NPO Ibuprofen 800 mg in 200 mls @ 400 mls/hr 01/05/25 12:41 01/06/25 10:00 Caldolor 800 Mg/200 Ml IVPB 400 mls/hr Q6H PRN Administration Breakthrough Pain Rated 1-3 or NPO Dextrose 1,000 mls @ 100 mls/hr 01/06/25 14:57 Dextrose 5% 1,000 Ml IVPB PRN PRN Hypoglycemia Protocol Insulin Aspart 2 - 5 units 01/06/25 17:00 01/08/25 12:05 Insulin Aspart (*Bkc) 100 Units/Ml SUB-Q Not Given TIDWM YESSI Protocol Insulin Aspart 1 - 2 units 01/06/25 21:00 01/07/25 22:13 Insulin Aspart (*Bkc) 100 Units/Ml SUB-Q Not Given HS [facility] Protocol Lisinopril 20 mg 01/05/25 14:00 01/08/25 09:09 Lisinopril 20 Mg Tablet PO Not Given QAM YESSI Metformin HCl 1,000 mg 01/05/25 17:00 01/06/25 08:12 Metformin Hcl 500 Mg Tablet BY MOUTH 1,000 mg On Hold: 01/06/25 14:56 BIDWM YESSI Administration Naloxone HCl 0.1 mg 01/05/25 12:41 Naloxone Hcl 0.4 Mg/Ml Vial IV PUSH Q2M PRN Opiate Reversal Ondansetron HCl 4 mg 01/04/25 13:46 Ondansetron Inj 4 Mg/2 Ml Vial IV PUSH ONCE PRN Nausea Ondansetron HCl 4 mg 01/05/25 12:41 Ondansetron Inj 4 Mg/2 Ml Vial IV PUSH Q4H PRN Nausea And Vomiting Oxycodone/Acetaminophen 1 tablet 01/05/25 12:41 Oxycodone/Acetaminophen (*Crx) 5-325 Mg Tablet PO Q4H PRN Pain Rated 4-6 Oxycodone/Acetaminophen 1 tab 01/05/25 12:41 Oxycodone/Acetaminophen (*Crx) 10-325 Mg Tablet PO Q6H PRN Pain Rated 7-10 Pantoprazole Sodium 40 mg 01/05/25 12:41 Pantoprazole 40 Mg Tablet PO QAM PRN Reflux Polyethylene Glycol 17 gm 01/05/25 13:15 01/08/25 09:02 Polyethylene Glycol 3350 17 Gm Powd.Pack PO Not Given QAM YESSI Rosuvastatin Calcium 5 mg 01/05/25 17:00 01/07/25 16:30 Rosuvastatin 5 Mg Tablet BY MOUTH 5 mg DAILY@1700 [facility] Administration Senna/Docusate Sodium 2 tab 01/05/25 13:15 01/08/25 09:03 Senna/Docusate Sodium Tablet PO 2 tab BID YESSI Administration Labs Labs: Laboratory Results - last 24 hr 01/07/25 01/07/25 01/07/25 09:43 16:56 21:58 WBC RBC Hgb Hct MCV MCH MCHC RDW Plt Count MPV Immature Gran % (Auto) Neut % (Auto) Lymph % (Auto) [place] % (Auto) Eos % (Auto) Baso % (Auto) Lymph # (Auto) [place] # (Auto) Eos # (Auto) Baso # (Auto) Abs Immat Gran (auto) Absolute Neuts (auto) Absolute Nucleated RBC Nucleated RBC % Sodium Potassium Chloride Carbon Dioxide Anion Gap BUN Creatinine Estim Creat Clear Calc Estimated GFR Glucose POC Capillary Glucose 111 H 121 H Cal[place] Total Bilirubin AST ALT Alkaline Phosphatase Total Protein Albumin Crossmatch See Detail 01/08/25 01/08/25 01/08/25 07:34 07:43 11:36 WBC 6.4 RBC 3.04 L Hgb 8.4 L Hct 26.4 L MCV 86.8 MCH 27.6 MCHC 31.8 L RDW 13.1 Plt Count 250 MPV 9.0 Immature Gran % (Auto) 0.2 Neut % (Auto) 71.7 Lymph % (Auto) 15.2 L [place] % (Auto) 11.8 H Eos % (Auto) 0.5 Baso % (Auto) 0.6 Lymph # (Auto) 0.98 [place] # (Auto) 0.8 H Eos # (Auto) 0.0 Baso # (Auto) 0.0 Abs Immat Gran (auto) 0.01 Absolute Neuts (auto) 4.6 Absolute Nucleated RBC 0.000 Nucleated RBC % 0.0 Sodium 134 L Potassium 3.4 Chloride 101 Carbon Dioxide 30 Anion Gap 3 L BUN 11 D Creatinine 0.57 L Estim Creat Clear Calc 109 Estimated GFR > 60 Glucose 108 POC Capillary Glucose 103 120 H [place] 8.3 L Total Bilirubin 0.7 AST 44 H ALT 17 Alkaline Phosphatase 89 Total Protein 5.9 L Albumin 3.1 L Crossmatch
[2025-01-08] MEDS: INFLUENZA VACCINE 45 MCG/0.5 ML SYRINGE IM (15:27)
[2025-01-14 06:08] LABS: Osmolality, Serum 273 mOsmol/kg (275-295)
[2025-01-14 06:08] LABS: Osmolality, Urine 265 mOsmol/kg (.)
--- NOTE | 2025-01-31 15:36 | PM.DS ---
DS: Admitting Diagnosis Discharge Date 01/08/25 Admitting Diagnosis RIGHT HIP DJD DS: Discharge Diagnosis Discharge Diagnosis (1) S/P total hip arthroplasty: Qualifiers: Laterality: right Qualified Code(s): Z96.641 - Presence of right artificial hip joint Code(s): Z96.649 - Presence of unspecified artificial hip joint Status: Acute DS: Summary Hospital Course Reason for hospitalization: RIGHT JOSELUIS Hospital Course: PATIENT WAS ADMITTED S/P TOTAL HIP ARTHROPLASTY FOR POSTOPERATIVE MEDICAL MANAGEMENT, PAIN CONTROL AND MOBILIZATION WITH PHYSICAL AND OCCUPATIONAL THERAPY. THE PATIENT PROGRESSED WELL WITH PT/OT. LABS AND VITALS REMAINED STABLE AND PAIN WELL CONTROLLED. THE PATIENT HAS BEEN CLEARED TO BE DISCHARGED HOME. FOLLOW UP APPOINTMENT SCHEDULED. DISCHARGE INSTRUCTIONS DISCUSSED AT LENGTH WITH THE PATIENT. MEDICATIONS REVIEWED. Status at Discharge Cognitive/behavioral status at discharge: STABLE Time Spent with Patient Time attestation: Total time spent providing and/or coordinating discharge services: DS: Data Procedures/Treatments: RIGHT JOSELUIS Discharge Plan Discharge Attending physician on discharge: Jasper Zuluaga Consulting providers: Anabela Schilling; Michael Lee; Hank Mosley; Viry Ambrosio; Leona Cuba; Gurpreet Starkey Discharging Clinician: Jasper Zuluaga Anticipated Discharge Date/Time: 01/08/25 13:19 Patient Disposition: Home with Home Health Service Activity: may shower, no driving and follow weight bearing status Diet: as tolerated Wound Care Instructions: follow printed instructions Discharge Instructions: Per Care Coordination, patient to discharge with [facility] ([phone]) for PT/OT and assisted services. Agency will call to arrange initial visit. Post Op Total Hip Replacement Instructions Dr. Jasper Zuluaga [phone] Your dressing will be changed prior to your discharge. You will be sent home with one additional dressing to be changed on post op day 7 by the home health RN. You may remove the dressing on post op day 14. Your incision was closed with dermabond, allow the dermabond to fall off naturally once your dressing is removed. Do not pull at the dermabond or disrupt incision healing. You may shower with your dressing but do not submerge in a bath tub. Do not drive or operate machinery until you are released by Dr. Zuluaga. Do not walk without a walker for any reason until you are released by Dr. Zuluaga. Continue to apply ice to the hip intermittently for additional pain relief. Protect your skin with a towel or pillow case. Continue to follow strict total hip replacement precautions. Your first post op appointment was sent to you via mail preoperatively. If you have any questions or are unable to make your appointment, please contact our office for scheduling questions. Your medications have been sent to your pharmacy. You have been sent home with pain medication. Please vegetable picker an over the counter stool softener to prevent constipation due to narcotic use. Please keep this in mind during your postoperative recovery. If you are not experiencing regular bowel movements, please contact our office for further instructions. Please contact our office with any questions/concerns regarding your hip at [phone]. TAKE 2 ADULT ASPIRINS PER DAY FOR 3 WEEKS TO PREVENT BLOOD CLOTS Patient Instructions: Antibiotic Form Patient Language: Somali Stand Alone Forms: General Discharge Information Follow-up/Referrals: Jasper Zuluaga MD [Physician, Orthopedics] - Keep Reg. Scheduled Appt. Discharge Medications: New oxycodone-acetaminophen 5-325 mg Tablet 1 tablet PO Q4-6H PRN (Reason: pain) Qty: 30 0RF aspirin 325 mg Tablet,Delayed Release (Dr/Ec) 325 mg PO Q12HR 28 Days Qty: 56 0RF Continued clonazepam 0.5 mg Tablet 0.5 mg PO DAILY PRN (Reason: Anxiety) omega-3 fatty acids-fish oil 360-1,200 mg Capsule 1 cap PO DAILY cholecalciferol (vitamin D3) 50,000 unit capsule 50,000 unit PO 2XW cyclobenzaprine 10 mg tablet 10 mg PO TID PRN (Reason: muscle spasm) Patient Comments: as per rheum citalopram 40 mg tablet 40 mg PO HS triamcinolone acetonide 0.1 % cream 1 applic topical BID PRN (Reason: skin irritation) Patient Comments: PRN LICHENS SCLEROSIS furosemide 20 mg tablet 20 mg PO QAM PRN (Reason: edema) metformin 1,000 mg tablet See Rx Instructions .ROUTE .COMPLEX Qty: 180 1RF Dose Instruction: Take 1 tablet by mouth twice daily Rx Instructions: Take 1 tablet by mouth twice daily pantoprazole 40 mg tablet,delayed release (DR/EC) 40 mg PO QAM PRN (Reason: REFLUX) Patient Comments: per rheum Discontinued oxycodone-acetaminophen 5-325 mg tablet 1 tablet PO Q6H PRN (Reason: pain) Qty: 30 0RF oxycodone-acetaminophen 5-325 mg tablet 1 tablet PO Q6H PRN (Reason: pain) Qty: 30 0RF chlorhexidine gluconate [Hibiclens] 4 % liquid 1 applic topical ONCE Qty: 237 0RF Rx Instructions: Cleanse operative extremity, in shower, every day for 1 week prior to surgical procedure. No Action lisinopril-hydrochlorothiazide 20-12.5 mg tablet 1 tablet PO DAILY Qty: 30 1RF celecoxib [Celebrex] 200 mg capsule 200 mg PO BID PRN (Reason: pain) Qty: 60 0RF rosuvastatin 5 mg tablet See Rx Instructions .ROUTE .COMPLEX Qty: 90 1RF Dose Instruction: TAKE 1 TABLET BY MOUTH ONCE DAILY IN THE EVENING WITH EVENING MEAL Rx Instructions: TAKE 1 TABLET BY MOUTH ONCE DAILY IN THE EVENING WITH EVENING MEAL gabapentin 300 mg capsule See Rx Instructions .ROUTE .COMPLEX Qty: 90 2RF Dose Instruction: TAKE 1-3 CAPSULES EVERY DAY AT BEDTIME Rx Instructions: TAKE 1-3 CAPSULES EVERY DAY AT BEDTIME Date of admission: 01/07/25 11:33 Primary Care Provider: Brenda Patel Admitting Provider: Jasper Zuluaga Attending physician on admission: Jasper Zuluaga Condition: Stable
== END 2025-01-08 16:05 | disposition home health service (06) | DRG 470 ==
LOC: ANHSURGERY 14:02 → ANH3MEDSUR 14:02
PROVIDERS: Nurse Practitioner Adult Health; Nurse Practitioner Family; Physician Assistant; Admitting Provider Orthopaedic Surgery; PCP Physician Assistant; Visit Provider Orthopaedic Surgery
PROC: 0SR90JZ Replacement of Right Hip Joint with Synthetic Substitute, Open Approach (ICD-10-PCS; CPT 27130; principal; 2025-01-05 07:30)
DX: M16.11 Unilateral primary osteoarthritis, right hip (principal); E87.1 Hypo-osmolality and hyponatremia; I95.81 Postprocedural hypotension; D64.89 Other specified anemias; Z23 Encounter for immunization; E87.6 Hypokalemia; I10 Essential (primary) hypertension; E78.2 Mixed hyperlipidemia; E11.9 Type 2 diabetes mellitus without complications; G25.81 Restless legs syndrome; Z85.3 Personal history of malignant neoplasm of breast
CPT/HCPCS: 36415; 36430; 73502; 80048; 80053; 82948; 83036; 83735; 83930; 83935; 84300; 85025; 85027; 86850; 86900; 86901; 86923; 90471; 90656; 97110; 97116; 97161; 97166; 97530; 97535; J0690; A9270; G0008; G0378; J0166; J1100; J1171; J1741; J1885; J2003; J2250; J2270; J2371; J2405; J2704; J2795; J3010; J3480; J7030; J7040; J7050; J7120; P9016

== ENCOUNTER 2025-04-11 13:47 | Outpatient (CLI) | payer OTHER, SELFPAY ==
--- OUTSIDE RECORDS SUMMARY | 2025-04-11 14:04 | XMS_ITS | Encounter Summary ---
Author Organization [facility] Address [address] [place] [address] Phone Care Team Providers Care Manager Of Tax Name Role Phone Angy Palomino MD Primary Care Provider Kaleb Parnell MD Unavailable Keshav Braga MD Primary Care Provider Encounter Details Date Type Department Care Team (Late st Contact Info) Description 08/26/2017 Orders Only [facility] ProviderSherley MD [address] [place] [id number] Social History Tobacco Use Types Packs/Day [...] on filedocumented in this encounter Care Teams Manager Of Tax Relationship Specialty Start Date End Date Angy Palomino MD [address] [place] [address] PCP - General 01/29/17 11/21/24 Keshav Braga MD [address] [place] [address] PCP - General Family Medicine 11/22/24 Kaleb Parnell MD [address] [place] [address] Consulting Physician Medical Oncology 02/27/20 documented as of this encounter
--- OUTSIDE RECORDS SUMMARY | 2025-04-11 14:04 | XMS_ITS | Encounter Summary ---
Author Organization [facility] Address [address] [place] [address] Phone Care Team Providers Care Engraver Tender Name Role Phone Angy Palomino MD Primary [...] on filedocumented in this encounter Care Teams Engraver Tender Relationship Specialty Start Date End Date Angy Palomino MD [address] [facility] [address] [place] [address] PCP - General 01/29/17 11/21/24 Keshav Braga MD [address] [place] [address] PCP - General Family Medicine 11/22/24 Kaleb Parnell MD [address] [place] [address] Consulting Physician Medical Oncology 02/27/20 documented as of this encounter
--- OUTSIDE RECORDS SUMMARY | 2025-04-11 14:04 | XMS_ITS | Clinical Summary ---
Author Organization [facility] Address [address] [place] [id number] Care Team Providers Care Exceptional Children Teacher Assistant Name Role Phone Kaleb Parnell MD Unavailable [...] (KlonoPIN) 0.5 mg tablet as needed Active zieep-9-wom-epa -dpa-fish oil 1,050-1,200 mg capsule 1 tablet [...] Encounters Date Type Department Care Team Description 03/11/2025 9:17 AM BLUEPRINT ASSEMBLER - 03/11/2025 11:59 PM BLUEPRINT ASSEMBLER Hospital Encounter [address] [address] Unilateral primary osteoarthritis, left hip Discharge Disposition: Discharge to home or self care 01/24/2025 7:10 AM CDT Lab [address] [address] 01/21/2025 7:20 AM CDT Lab [address] [address] Avitaminosis D (Primary Dx) 01/21/2025 Orders Only [address] [address] Brenda Patel PA from Last 3 Months Immunizations Immunization Administration [...] m of left breast - (Added by PAUL Conv) History of radiation therapy Breast cancer (HCC) 03/30/2017 Ankylosing spondylitis 10/2023 Family History Medical History Relation Name Comments BRCA 2 positive Maternal cousin BRCA 2 positive Mother Breast cancer Mother Adenocarcinoma of breast - (Added by TW Conv) BRCA 2 positive Mother's Sister BRCA 2 positive Paternal Grandmother Relation Name Status Comments Maternal [...] Priority Date/Time Associated Diagnosis Comments CT HIP LEFT WO CONTRAST Schedule Routine, Read Routine (OP Routine) 03/11/2025 9:31 AM BLUEPRINT ASSEMBLER Unilateral primary osteoarthritis, left hip HEMOGLOBIN A1C Routine 01/24/2025 7:18 AM CDT LIPID PANEL Routine 01/24/2025 7:18 AM CDT VITAMIN D 25 HYDROXY Routine 01/21/2025 7:28 AM CDT Avitaminosis D SCREENING MAMMOGRAM BILATERAL W TAY Schedule Routine, Read Routine (OP Routine) 09/29/2023 7:21 AM CDT Carcinoma of overlapping sites of left breast in female, estrogen receptor positive (HCC) from Last 3 Months or Most Recently Relevant to Health Maintenance Results * CT Hip Left WO Contrast (03/11/2025 9:31 AM BLUEPRINT ASSEMBLER) Anatomical Region Laterality Modality Lower Extremities Left Computed Tomog michelle 03/11/2025 11:4 6 AM BLUEPRINT ASSEMBLER Impressions 03/11/2025 11:46 AM BLUEPRINT ASSEMBLER 1. Severe left hip osteoarthritis. Electronically signed by: Sean Mcdonnell M.D. Narrative 03/11/2025 11:46 AM BLUEPRINT ASSEMBLER EXAMINATION: CT HIP LEFT WO CONTRAST HISTORY: Left hip osteoarthritis TECHNIQUE: Transaxial computed tomographic images of the left hip were obtained without intravenous contrast. COMPARISON: None available FINDINGS: CT images demonstrate severe left hip osteoarthritis with chronic remodeling, bone loss and erosions. Moderate to large hip effusion is present with synovitis and debris. No acute fracture. Mild pubic symphysis osteoarthritis. Left hamstring origin tendinosis is present. Limited evaluation the sciatic nerve appears normal in course and morphology. Insertional adductor tendinosis is present. Colonic diverticulosis. Procedure Note Sean Mcdonnell MD - 03/11/2025 EXAMINATION: CT HIP LEFT WO CONTRAST HISTORY: Left hip osteoarthritis TECHNIQUE: Transaxial computed tomographic images of the left hip were obtained without intravenous contrast. COMPARISON: None available FINDINGS: CT images demonstrate severe left hip osteoarthritis with chronic remodeling, bone loss and erosions. Moderate to large hip effusion is present with synovitis and debris. No acute fracture. Mild pubic symphysis osteoarthritis. Left hamstring origin tendinosis is present. Limited evaluation the sciatic nerve appears normal in course and morphology. Insertional adductor tendinosis is present. Colonic diverticulosis. IMPRESSION: 1. Severe left hip osteoarthritis. Electronically signed by: Sean Mcdonnell M.D. Jasper Zuluaga MD IMG CT PROCEDURES Final Resu lt * Hemoglobin A1c (01/24/2025 7:18 AM CDT) Hgb A1C 5.3 4.0 - 5.6 % Estimated Average Glucose 105 mg/dL LEANDRO GALLAGHER Comment: The ADA recommends reporting an estimated Average Glucose (eAG) with all Hemoglobin A1c results using the equation derived from a study of 507 normal and diabetic adults. Minority populations were underrepresented and children were not included. (Diabetes Care 31:0335-9575, 2008). The eAG is not equivalent to a fasting glucose. Blood 01/24/2025 7:18 AM CDT 01/24/2025 10:52 AM CDT Keshav Braga MD LAB BLOOD ORDERABLES nal Result LEANDRO [address] [facility] Department [place] [address] * (ABNORMAL) Lipid panel (01/24/2025 7:18 AM CDT) Cholesterol 249(H) 30 - 199 mg/dL Comment: Interpretive Data Ages < or = 19 years Acceptable: <170 mg/dL Borderline high: 170-199 mg/dL High: >or= 200 mg/dL Ages > or = 20 years Desirable: <200 mg/dL Borderline high: 200-239 mg/dL High: >or= 240 mg/dL Literature References: 1. Expert Panel on Integrated Guidelines for Cardiovascular Health and Risk Reduction in Children and Adolescents. Pediatrics 2011;128:S213 2. NCEP Expert Panel. Circulation 2004;110:227 Current Interpretive Data was last revised on 2017. Triglycerides 148 <=149 mg/dL LEANDRO Comment: Interpretive Data Ages < or = 9 years Acceptable: <75 mg/dL Borderline high: 75-99 mg/dL High: >or= 100 mg/dL Ages 10 to 20 years Acceptable: <90 mg/dL Borderline high: 90-129 mg/dL High: >or= 130 mg/dL Ages > or = 20 years Desirable: <150 mg/dL Borderline high: 150-199 mg/dL High: 200-499 mg/dL Very high: >or= 499 mg/dL Literature References: 1. Expert Panel on Integrated Guidelines for Cardiovascular Health and Risk Reduction in Children and Adolescents. Pediatrics 2011;128:S213 2. NCEP Expert Panel. Circulation 2004;110:227 Current Interpretive Data was last revised on 2017. HDL 50 >=40 mg/dL LEANDRO Comment: Interpretive Data Ages < or = 19 years Acceptable: >45 mg/dL Borderline low: 40-45 mg/dL Low: <40 mg/dL Ages > or = 20 years Desirable: >or= 60 mg/dL Low: <40 mg/dL Literature References: 1. Expert Panel on Integrated Guidelines for Cardiovascular Health and Risk Reduction in Children and Adolescents. Pediatrics 2011;128:S213 2. NCEP Expert Panel. Circulation 2004;110:227 Current Interpretive Data was last revised on 2017. LDL, calculated 172(H) <=129 mg/dL LEANDRO Comment: Interpretive Data Ages < or = 19 years Acceptable: <110 mg/dL Borderline high: 110-129 mg/dL High: >or= 130 mg/dL Ages > or = 20 years Optimal: <100 mg/dL Near optimal: 100-129 mg/dL Borderline high: 130-159 mg/dL High: >160 mg/dL Calculated using the Begum LDL-C estimating equation. This equation was implemented on 2023. Prior to this date LDL-C was estimated using the Friedewald equation. Literature References: 1. Expert Panel on Integrated Guidelines for Cardiovascular Health and Risk Reduction in Children and Adolescents. Pediatrics 2011;128:S213 2. NCEP Expert Panel. Circulation 2004;110:227 3. Kel M et al. JJ Cardiol. 2019August 12;5(5):540-548. doi: [email or web address] Current Interpretive Data was last revised on 2023. Non-HDL Cholesterol 199 mg/dL LEANDRO Comment: Interpretive Data Ages < or = 19 years Acceptable: <120 mg/dL Borderline high: 120-144 mg/dL High: >145 mg/dL Ages > or = 20 years When triglycerides are >200 mg/dL, Non-HDL cholesterol is a secondary target of therapy with treatment goals that are 30 mg/dL greater than the LDL cholesterol target. Literature References: 1. Expert Panel on Integrated Guidelines for Cardiovascular Health and Risk Reduction in Children and Adolescents. Pediatrics 2011;128:S213 2. NCEP Expert Panel. Circulation 2004;110:227 Current Interpretive Data was last revised on 2017. Chol/HDL ratio 5 LEANDRO Blood 01/24/2025 7:18 AM CDT 01/24/2025 10:52 AM CDT us Keshav Braga MD LAB BLOOD ORDERABLES Fi nal Result Performing Organization Address City/[facility] Co de Phone Number [address] [place] [address] * Vitamin D 25 hydroxy (01/21/2025 7:28 AM CDT) [facility] Vitamin D 25-OH 57.0 30.0 - 80.0 ng/mL Blood Venous blood specimen / Unknown 01/21/2025 7:28 AM CDT 01/21/2025 10:43 AM CDT us Christel Francisco MD LAB BLOOD ORDERABLES Fin al Result Performing Organization Address City/[facility]/ZIP Co de Phone Number [address] [place] [place] [address] * Screening Mammogram Bilateral W Tay (09/29/2023 [...] Most Recently Relevant to Health Maintenance Insurance [employer] [place] [employer] Care Teams Exceptional Children Teacher Assistant Relationship Specialty Start Date End Date Keshav Braga MD [address] [facility] [address] [place] [address] PCP - General Family Medicine 11/22/24 Kaleb Parnell MD Consulting Physician Medical Oncology 02/27/20
--- OUTSIDE RECORDS SUMMARY | 2025-04-11 14:04 | XMS_ITS | Encounter Summary ---
Author Organization [facility] Address [address] [place] [address] Phone Care Team Providers Care Automotive Airconditioning Mechanic Name Role Phone Angy Palomino MD Primary [...] on filedocumented in this encounter Care Teams Automotive Airconditioning Mechanic Relationship Specialty Start Date End Date Angy Palomino MD [address] [place] [address] PCP - General 01/29/17 11/21/24 Keshav Braga MD [address] [place] [address] PCP - General Family Medicine 11/22/24 Kaleb Parnell MD [address] [place] [address] Consulting Physician Medical Oncology 02/27/20 documented as of this encounter
--- OUTSIDE RECORDS SUMMARY | 2025-04-11 14:04 | XMS_ITS | Clinical Summary ---
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
--- OUTSIDE RECORDS SUMMARY | 2025-04-11 14:04 | XMS_ITS | Encounter Summary ---
Author Organization [facility] Address [address] [place] [address] Care Team Providers Care Public Stenographer Name Role Phone Angy Palomino MD Primary Care Provider Kaleb Parnell MD Unavailable Keshav Braga MD Primary Care Provider Reason for Visit * Reason Onset Date Comments Scheduling Appointments 12/17/2019 no answe r for dexa reminder Encounter Details Date Type Department Care Team (Late st Contact Info) Description 12/17/2019 Telephone [facility] [address] [place] [address] Padmini Gilliam RT Scheduling Appointments (no answer [...] on filedocumented in this encounter Care Teams Public Stenographer Relationship Specialty Start Date End Date Angy Palomino MD [address] [facility] [address] [place] [address] PCP - General 01/29/17 11/21/24 Keshav Braga MD [address] [place] [address] PCP - General Family Medicine 11/22/24 Kaleb Parnell MD [address] [place] [address] Consulting Physician Medical Oncology 02/27/20 documented as of this encounter
--- OUTSIDE RECORDS SUMMARY | 2025-04-11 14:04 | XMS_ITS | Clinical Summary ---
Author Organization [facility] [employer] Address [address] [place] [address] Care Team Providers Care Linux Developer Name Role Phone Angy Palomino MD Primary Care Provider + Source Comments [facility] [employer],non-owned Affiliates and Associated Physician Practices is amultiple site organization consisting of ambulatory clinics and hospital sitesin [place], [place], [place] and [place]. This disclosure is being madepursuant to the Care Everywhere program and may not contain all information available regarding this patient. Last updated 18.[facility] [employer] Allergies No known active allergies Medications * Be aware that medications may not be up to date on this document. Alwaysverify current medications with the patient. citalopram (CELEXA) 20 MG tablet 20 mg once daily 07/20/2017 Active lisinopril-hydr oCHLOROthiazide (PRINZIDE; ZESTORETIC) 10-12.5 MG tablet Take 1 tablet by mouth once daily 07/20/2017 Active vitamin D, ergocalciferol, (DRISDOL) 47950 UNITS capsule Take 50,000 Units by mouth every 7 days 07/20/2017 Active metFORMIN (GLUCOPHAGE) 1000 MG tablet Take 1,000 mg by mouth 2 times daily with morning and evening meal Active nystatin (MYCOSTATIN) 045924 UNIT/GM ointmentIndicat ions:Lichen sclerosus,Vulva r itching Apply [...] on file Legal Sex Female 6:26 AM CONTRACT NEGOTIATOR Gender Identity Not on file Sexual Orientation [...] Last Done Comments COLOGUARD (AGES 45-75) - COLON CA SCREENING 1966 COLON MONITORING 1966 COLONOSCOPY [...] FOR DIABETES 09/12/2020 MAMMOGRAM 09/30/2020 09/30/2018, 09/30/2018 DEPRESSION SCREENING 04/14/2024 COVID-19 VACCINE ( season) 2024 INFLUENZA VACCINE (#1) 2024 Cervical Cancer Screening Discontinued PAP SMEAR Discontinued 12/31/2018 (Done Outside Per Patient) HIB VACCINE Aged Out No longer eligi ble based on patient's age to complete this topic HPV VACCINE Aged Out No longer eligi ble based on patient's age to complete this topic MENINGOCOCCAL (Group B) VACCINE SHARED DECISION-MAKING Aged Out No longer eligible based on patient's age to complete this topic MENINGOCOCCAL GROUPS A/C/Y/W VACCINE Aged Out No longer eligible based on patient's age to complete this topic PAP with HPV Discontinued Insurance [facility] Care Teams Linux Developer Relationship Specialty Start Date End Date Angy Palomino MD [address] [place] [address] PCP - General 07/24/17
[2025-04-11 14:51] LABS: Hematocrit 39.1 % (37.0-47.0); Hemoglobin 12.0 g/dL (12.0-15.0); Immature Granulocyte Percent A 0.2 % (0-0.5); Lymphocytes Absolute Auto 1.50 K/mm3 (0.9-3.2); Mean Corpuscular HGB Conc 30.7 g/dl (32-36); Mean Corpuscular Hemoglobin 24.7 pg (26-34); Mean Corpuscular Volume 80.6 fl (80-100); Nucleated Red Blood Cells Absolute Auto 0.000 K/mm3 (0.0-0.012); Nucleated Red Blood Cells Perc 0.0 % (0.0-0.2); Platelet Count Result 244 k/mm3 (150-375); Red Blood Count 4.85 M/mm3 (4.2-5.4); White Blood Count 5.0 K/mm3 (4.5-10.0)
[2025-04-11 15:03] LABS: Add Urine Microscopic? YES; Appearance Urine Clear (Clear); Glucose Urine UA Negative (Negative); Leukocyte Esterase Ur 1+ LEU/UL (Negative); Need Manual Microscopic Reviewed; Nitrate Urine Negative (Negative); Non Pathogenic Casts 0-2; Specific Grav Ur 1.017 (1.001-1.035)
[2025-04-11 15:03] LABS: Albumin Level 4.1 g/dL (3.5-5.1); Anion Gap 8 mmol/L (4-12); Blood Urea Nitrogen 13 mg/dL (7-17); Calcium 9.3 mg/dL (8.4-10.2); Carbon Dioxide 27 mmol/L (22-30); Chloride 104 mmol/L (98-107); Estimated Glomerular Filt Rate > 60; Glucose 113 mg/dL (65-110); Potassium 3.4 mmol/L (3.4-5.0); Sodium 139 mmol/L (137-145)
[2025-04-11 15:04] LABS: INR 1.0; Partial Thromboplastin Time 28.9 Seconds (22.3-36.8); Prothrombin Time 13.6 Seconds (11.1-14.7)
[2025-04-11 16:02] LABS: MRSA (PCR) NOT DETECTED (NOT DETECTE)
[2025-04-11 17:43] LABS: Hemoglobin A1C 5.1 % (<5.7)
== END 2025-04-11 13:48 | disposition home or self-care (01) ==
PROVIDERS: PCP Physician Assistant; Visit Provider Orthopaedic Surgery
DX: Z01.812 Encounter for preprocedural laboratory examination (principal); M16.12 Unilateral primary osteoarthritis, left hip
CPT/HCPCS: 80048; 80307; 81001; 82040; 83036; 85025; 85610; 85730; 87086; 87641